=== PATIENT | female | born 1990 | race Caucasian/White ===

== ENCOUNTER → 2017-04-16 | Day surgery (SDC) | payer OTHER ==
[~2017-04-16] MED LIST: HYDROmorphone 2 MG/ML VIAL IV; IV RINGERS,LACTATED 1000ML 1,000 ML IV; LIDOCAINE 1% PF 2 ML VIAL. ID; LIDOCAINE 2% PF Vial for OR 5 ML VIAL.; MORPHINE SULFATE 2 MG/ML DISP.SYRIN. IV; ONDANSETRON PF 4 MG/2 ML VIAL. IV; PROCHLORPERAZINE 10 MG/2 ML VIAL. IV; PROPOFOL 20 ML IV; fentaNYL PF VIAL 100 MCG/2 ML VIAL IV
[2017-04-16] MEDS: IV RINGERS,LACTATED 1000ML 1,000 ML IV (16:00)
[2017-04-16 16:13] LABS: POC GLUCOSE 207 mg/dL (70-99)
[2017-04-16 16:26] LABS: NEG OBC UR NEG; POS OBC UR POS
== END | disposition home or self-care (01) ==
LOC: ENDOS 15:36
DX: K29.50 Unspecified chronic gastritis without bleeding (principal); E11.9 Type 2 diabetes mellitus without complications; Z87.39 Personal history of other diseases of the musculoskeletal system and connective tissue; Z86.39 Personal history of other endocrine, nutritional and metabolic disease; Z91.040 Latex allergy status
CPT/HCPCS: 43235; 81025; 82962; J2704

== ENCOUNTER 2017-04-24 12:32 | Day surgery (SDC) | payer OTHER ==
[~2017-04-24] VITALS: Ht 160 cm; Wt 70.3 kg
[~2017-04-24 12:32] MED LIST changes: +DEXAMETHASONE SOD PHOS 20 MG/5 ML VIAL. ONE; +DICY20TA3 PO; +HYDR-2762 PO; +HYDR-971 PO; -HYDROmorphone 2 MG/ML VIAL IV; +HYOS0.1264 PO; +HYOS125E PO; +INSU100I32 SQ; +INSU100V31 SQ; -IV RINGERS,LACTATED 1000ML 1,000 ML IV; +IV RINGERS,LACTATED 1000ML 1,000 ML IV SCH; -LIDOCAINE 1% PF 2 ML VIAL. ID; +LIDOCAINE 1% PF 2 ML VIAL. ID PRN; -LIDOCAINE 2% PF Vial for OR 5 ML VIAL.; +LIDOCAINE 2% PF Vial for OR 5 ML VIAL. ONE; +METO10TA81 PO; -MORPHINE SULFATE 2 MG/ML DISP.SYRIN. IV; +ONDA4TAB7 PO; -ONDANSETRON PF 4 MG/2 ML VIAL. IV; +ONDANSETRON PF 4 MG/2 ML VIAL. IV PRN; +ONDANSETRON PF 4 MG/2 ML VIAL. ONE; -PROCHLORPERAZINE 10 MG/2 ML VIAL. IV; +PROM25TA10 PO; -PROPOFOL 20 ML IV; +PROPOFOL 20 ML IV ONE; +ROCURONIUM 50 MG/5 ML VIAL. ONE; +ceFAZolin 2GM PREMIX 2 GM/50 ML BAG IV ONE; -fentaNYL PF VIAL 100 MCG/2 ML VIAL IV; +fentaNYL PF VIAL 100 MCG/2 ML VIAL IV PRN
[2017-04-24] MEDS ORDERED: IV RINGERS,LACTATED 1000ML 1,000 ML IV SCH (12:41)
[2017-04-24] MEDS ORDERED: MIDAZOLAM HCL/PF 2 MG/2 ML VIAL. IV PRN (12:45)
[2017-04-24] MEDS ORDERED: LIDOCAINE 1% PF 2 ML VIAL. ID PRN (12:45)
[2017-04-24] MEDS ORDERED: fentaNYL PF VIAL 100 MCG/2 ML VIAL IV PRN ×2 (12:45)
[2017-04-24 12:56] LABS: NEG OBC UR NEG; POS OBC UR POS
[2017-04-24] MEDS ORDERED: BUPIVAC MPF-EPI 0.5%-1:200000 30 ML VIAL. ONE (13:03)
[2017-04-24] MEDS ORDERED: SURGICEL HEMOSTAT 4X8 EACH. ONE (13:03)
[2017-04-24] MEDS ORDERED: IOHEXOL 300 MG/ML 50 ML VIAL. ONE (13:03)
[2017-04-24] MEDS ORDERED: fentaNYL PF VIAL 100 MCG/2 ML VIAL ONE ×2 (13:37→14:31)
[2017-04-24] MEDS ORDERED: MIDAZOLAM HCL/PF 2 MG/2 ML VIAL. ONE (13:37)
[2017-04-24] MEDS ORDERED: KETOROLAC 30 MG/ML INJ FOR OR. INJ ONE (14:32)
[2017-04-24] MEDS ORDERED: GLYCOPYRROLATE 1 MG/5 ML VIAL. ONE (14:53)
[2017-04-24] MEDS ORDERED: NEOSTIGMINE METHYLSULFATE 5 MG/5 ML SYRINGE. ONE (14:53)
--- NOTE | 2017-04-24 15:10 | PDOC4 ---
Operative Note Operative Note Date: 04/24/2017 Preoperative diagnosis: Biliary dyskinesia Postoperative diagnosis: Same Procedure: Laparoscopic cholecystectomy Surgeon: Bayron Specimen: Gallbladder Dictation: Patient is a 26-year-old female who has developed right upper quadrant abdominal pain postprandial nausea for the last several months after the delivery of her baby at the time of her HIDA scan which was injected with Kinevac she had similar symptoms since she is having after eating. Procedure lap scopic cholecystectomy was explained to the patient detail was benefits were also discussed including bleeding infection alternatives to this procedure also discussed the patient seemed understanding gave both verbal and written consent had procedure performed. Patient was taken to the operating room placed in supine position general anesthesia was initiated once patient was asleep and intubated her abdomen was prepped and draped usual sterile fashion using ChloraPrep and area just below the umbilicus was injected with quarter percent Marcaine with epinephrine incisions made lead blade scalpel varies needle was placed within the abdomen. A pneumoperitoneum was achieved once this complete an 11 mm port was placed a 5 mm camera was then placed within the abdomen and inspected no other at maladies were noted at this point a 5 OmegaPort was placed in the epigastrium under direct visualization a second 5 mm port placed lateral right abdomen as well as one in the right mid abdomen the dome of the gallbladder was grasped retracted cephalad the infundibulum gallbladder's grasped retracted laterally there is some adhesions to the gallbladder which were taken down with blunt dissection exposing the triangle. Adherent tissues the triangle are taken down exposing the cystic duct and cystic artery both were doubly clipped and transected the gallbladder was taken off the liver with hook left cautery placed within an Endo Catch bag and removed from the umbilicus. The right upper quadrant was irrigated and suctioned dry hemostasis deemed to be appropriate and the pneumoperitoneum was reduced all ports removed the fascial defect at the umbilicus was closed with a [id number] 0 Vicryl suture and skin was approximated all port sites 4 septic Monocryl. Mastisol Steri-Strips and Band-Aids were applied as dressings. She was waken next made in the operating room taken recovery in stable condition all sponge instrument needle counts listed as correct. Estimated blood loss 20 mL WADLO FOY MD Apr 24, 2017 15:10
--- NOTE | 2017-04-24 15:11 | DISCH ---
DISCHARGE INSTRUCTIONS Condition on Discharge Condition on Discharge: Stable Activity After Discharge Activity Instructions for Disc: Avoid exertion Other activity instructions: No lifting >20lbs for 2 weeks Diet after Discharge Diet after Discharge: Low Fat Wound Incision Care Other wound/incision instructi: May shower in 24 hours Contacting the after DC Call your doctor for: If your condition worsens Follow-Up Follow up with: Dr Foy in 2 weeks WALDO FOY MD Apr 24, 2017 15:11
[2017-04-24] MEDS: fentaNYL PF VIAL 100 MCG/2 ML VIAL IV PRN ×2 (15:32→15:38)
[2017-04-24] MEDS: MORPHINE SULFATE 2 MG/ML DISP.SYRIN. IV PRN ×2 (15:52→16:05)
[2017-04-24] MEDS ORDERED: oxyCODONE/APAP 5/325 1 TAB TABLET PO PRN (16:00)
[2017-04-24] MEDS: HYDROmorphone 2 MG/ML VIAL IV PRN ×4 (16:16→16:52)
[2017-04-24 17:20] VITALS: BP 107/66
--- NOTE | 2017-04-26 17:31 | PATHOLOGY ---
PATHOLOGY REPORT * * * * * * * * FINAL DIAGNOSIS: Gallbladder, laparoscopic cholecystectomy: - Chronic cholecystitis, mild. COMMENT: There are no calculi identified within the gallbladder lumen or specimen container. Sections of the gallbladder show focal very mild chronic inflammation. There is no evidence of malignancy. (JPM:mgr; 04/26/2017) REPORT ELECTRONICALLY SIGNED BY: Lester Bower M.D. DATE/TIME: 04/26/2017 17:31 * * * * * * * * GROSS PATHOLOGY: Received in formalin labeled "Miya Longo, gallbladder," is an 8.3 x 3.1 x 2.9 cm, intact gallbladder with dark green, slightly vascular serosal surfaces. Opening the gallbladder reveals dark green, velvety mucosa and an average wall thickness of 0.2 cm. Calculi are not present and no masses are noted grossly. Health Occupations Instructor sections from the body and fundus are submitted along with the proximal margin in cassette A1. (TSD; 04/25/2017) INITIAL CPT CODE(S): A; 23860 Professional services performed by [facility] [place] [address] Technical services performed by [facility] at [address] [place] [address] [address] [address]. FILIBERTO Ramirez [phone] (fax) SPECIMEN(S) RECEIVED: A.Gallbladder CLINICAL HISTORY: Biliary dyskinesia PATIENT: MIYA LONGO /AGE: 5 1990 (Age: 26) PATIENT #: [id number] ALT CASE #: SPECIMEN COLLECTION DATE: 04/24/2017 SPECIMEN RECEIVED DATE: 04/25/2017 [facility] - [address] [place] [address] - PHONE: [phone] * * * END OF REPORT * * *
== END 2017-04-24 17:31 | disposition home or self-care (01) ==
LOC: SURG 12:32
PROVIDERS: ATTEND Surgery
DX: K81.1 Chronic cholecystitis (principal); K82.8 Other specified diseases of gallbladder; Z91.040 Latex allergy status; E11.9 Type 2 diabetes mellitus without complications
CPT/HCPCS: 47562; 81025; 82962; J0690; J1100; J1170; J1885; J2250; J2270; J2405; J2704; J2710; J3010; J3490; J7030; J7120; Q9967; J2001

== ENCOUNTER 2017-04-25 15:58 | Observation (INO) | payer OTHER ==
[~2017-04-25] VITALS: Ht 160 cm; Wt 70.3 kg
[~2017-04-25 15:58] MED LIST changes: -DEXAMETHASONE SOD PHOS 20 MG/5 ML VIAL. ONE; -IV RINGERS,LACTATED 1000ML 1,000 ML IV SCH; -LIDOCAINE 1% PF 2 ML VIAL. ID PRN; -LIDOCAINE 2% PF Vial for OR 5 ML VIAL. ONE; -ONDANSETRON PF 4 MG/2 ML VIAL. IV PRN; -ONDANSETRON PF 4 MG/2 ML VIAL. ONE; -PROPOFOL 20 ML IV ONE; -ROCURONIUM 50 MG/5 ML VIAL. ONE; -ceFAZolin 2GM PREMIX 2 GM/50 ML BAG IV ONE; -fentaNYL PF VIAL 100 MCG/2 ML VIAL IV PRN
[2017-04-25] MEDS ORDERED: IV NORMAL SALINE 1000ML BAG 1,000 ML IV SCH (16:29)
[2017-04-25 16:36] LABS: BASO % 0 % (0-3); EOS % 1 % (0-3); HEMOGLOBIN 13.2 g/dL (12.0-15.5); LYMPH # 2.5 x10^3/uL (1.0-4.8); LYMPH % 25 % (24-48); MEAN CORPUSCULAR HEMOGLOBIN 31 pg (25-35); MEAN CORPUSCULAR HGB CONC 33 g/dL (31-37); MEAN CORPUSCULAR VOLUME 93 fL (79-100); MONO % 9 % (0-9); NEUT % 65 % (31-73); PLATELET COUNT 400 x10^3/uL (140-400); RED BLOOD COUNT 4.31 x10^6/uL (3.50-5.40); RED CELL DISTRIBUTION WIDTH 13.5 % (11.5-14.5); WHITE BLOOD COUNT 10.2 x10^3/uL (4.0-11.0)
--- NOTE | 2017-04-25 16:38 | PHYS DOC ---
Past Medical History Past Medical History: Diabetes-Type I, Ovarian Cyst Past Medical History s/p melvin Past Surgical History: No Surgical History, Cholecystectomy Alcohol Use: Rarely Drug Use: None Adult General Chief Complaint Chief Complaint: ABDOMINAL PAIN HPI HPI Patient is a 26 year old female presented with abdominal pain s/p cholecystectomy yesterday. Patient had a laparoscopic cholecystectomy yesterday. Today she's been taking her pain medicines but has intractable pain. She's been taking the pain medicines orally to every 4 hours as directed. No vomiting. No fevers. The pain is diffuse. Worse with movement. She did call her surgeon asked that she come in to be seen for this. Pain is severe. Review of Systems Review of Systems Constitutional: Denies fever or chills Eyes: Denies change in visual acuity, redness, or eye pain HENT: Denies nasal congestion or sore throat Respiratory: Denies cough or shortness of breath Cardiovascular: No additional information not addressed in HPI GI: Per HPI. : Denies dysuria or hematuria Musculoskeletal: Denies back pain or joint pain Integument: Denies rash or skin lesions Neurologic: Denies headache, focal weakness or sensory changes Endocrine: Denies polyuria or polydipsia All other systems were reviewed and found to be within normal limits, except as documented in this note. Current Medications Current Medications Current Medications Medications (Trade) Dose Ordered Sig/Alfonso Start Time Stop Time Status Last Admin Dose Admin Hydromorphone HCl (Dilaudid) 1 mg PRN Q15MIN PRN 04/25/17 16:30 04/25/17 21:43 DC 04/25/17 19:31 1 MG Info (Do NOT chart on this entry -- for MONITORING) 1 each PRN DAILY PRN 04/25/17 17:00 04/27/17 16:59 Iohexol (Omnipaque 300 Mg/ml) 75 ml 1X ONCE 04/25/17 17:15 04/25/17 17:16 DC Sodium Chloride 1,000 ml @ 1,000 mls/hr Q1H 04/25/17 16:29 04/25/17 17:28 DC 04/25/17 16:49 1,000 MLS/HR Allergies Allergies Allergies Coded Allergies Type Severity Reaction Last Updated Verified latex Allergy Intermediate 04/24/17 Yes Physical Exam Physical Exam Constitutional: Well developed, well nourished, mild distress, non-toxic appearance. HENT: Normocephalic, atraumatic, bilateral external ears normal, oropharynx moist, no oral exudates, nose normal. Eyes: PERRLA, EOMI, conjunctiva normal, no discharge. Neck: Normal range of motion, no tenderness, supple, no stridor. Cardiovascular:Heart rate regular rhythm, no murmur Lungs & Thorax: Bilateral breath sounds clear to auscultation Abdomen:Diffuse abdominal tenderness. Skin: Warm, dry, no erythema, no rash. Back: No tenderness, no CVA tenderness. Extremities: No tenderness, no cyanosis, no clubbing, ROM intact, no edema. Neurologic: Alert and oriented X 3, normal motor function, normal sensory function, no focal deficits noted. Psychologic: Affect normal, judgement normal, mood normal. Current Patient Data Vital Signs Vital Signs Date Time Temp Pulse Resp B/P (MAP) Pulse Ox O2 Delivery O2 Flow Rate FiO2 04/25/17 17:20 16 04/25/17 16:30 98.3 113 126/80 (95) 97 Room Air 98.3 Lab Values Laboratory Tests Test 04/25/17 16:30 White Blood Count 10.2 x10^3/uL (4.0-11.0) Red Blood Count 4.31 x10^6/uL (3.50-5.40) Hemoglobin 13.2 g/dL (12.0-15.5) Hematocrit 40.0 % (36.0-47.0) Mean Corpuscular Volume 93 fL (79-100) Mean Corpuscular Hemoglobin 31 pg (25-35) Mean Corpuscular Hemoglobin Concent 33 g/dL (31-37) Red Cell Distribution Width 13.5 % (11.5-14.5) Platelet Count 400 x10^3/uL (140-400) Neutrophils (%) (Auto) 65 % (31-73) Lymphocytes (%) (Auto) 25 % (24-48) Monocytes (%) (Auto) 9 % (0-9) Eosinophils (%) (Auto) 1 % (0-3) Basophils (%) (Auto) 0 % (0-3) Neutrophils # (Auto) 6.7 x10^3uL (1.8-7.7) Lymphocytes # (Auto) 2.5 x10^3/uL (1.0-4.8) Monocytes # (Auto) 0.9 x10^3/uL (0.0-1.1) Eosinophils # (Auto) 0.1 x10^3/uL (0.0-0.7) Basophils # (Auto) 0.0 x10^3/uL (0.0-0.2) Sodium Level 141 mmol/L (136-145) Potassium Level 4.1 mmol/L (3.5-5.1) Chloride Level 102 mmol/L (98-107) Carbon Dioxide Level 26 mmol/L (21-32) Anion Gap 13 (6-14) Blood Urea Nitrogen 13 mg/dL (7-20) Creatinine 0.5 mg/dL (0.6-1.0) L Estimated GFR (Cockcroft-Gault) 150.3 BUN/Creatinine Ratio 26 (6-20) H Glucose Level 232 mg/dL (70-99) H Calcium Level 8.5 mg/dL (8.5-10.1) Total Bilirubin 0.4 mg/dL (0.2-1.0) Aspartate Amino Transferase (AST) 40 U/L (15-37) H Alanine Aminotransferase (ALT) 41 U/L (14-59) Alkaline Phosphatase 101 U/L (46-116) Total Protein 7.9 g/dL (6.4-8.2) Albumin 3.7 g/dL (3.4-5.0) Albumin/Globulin Ratio 0.9 (1.0-1.7) L Lipase 50 U/L (73-393) L Laboratory Tests 04/25/17 16:30 Laboratory Tests 04/25/17 16:30 EKG EKG [] Radiology/Procedures Radiology/Procedures []PATIENT: JOVITA LONGO ACCOUNT: [id number] : 1990 LOCATION: ER AGE: 26 SEX: F EXAM STATUS: REG ER ORD. PHYSICIAN: CHARITO SHERMAN MD REASON: abdominal pain s/p melvin PROCEDURE: CT ABD PELV W/ IV CONTRST ONLY CT SCAN OF THE ABDOMEN AND PELVIS WITH IV CONTRAST. History: Abdominal pain status post cholecystectomy Comparison:None. Procedure: Contiguous axial images of the abdomen and pelvis were performed after the administration of 75 cc of Omni 300 IV contrast and without oral contrast. CT Abdomen with contrast: Findings: Liver: Unremarkable Spleen: Unremarkable Pancreas: Unremarkable Adrenal Glands: Unremarkable Kidneys: Unremarkable There is no mass or lymphadenopathy. Surgical clips and minimal free fluid is seen in the gallbladder fossa. There is air within the abdominal wall on the right and there is also mild free air under the diaphragm. CT Pelvis with Contrast: Findings: The urinary bladder appears normal. There is no free fluid. There is no lymphadenopathy. The appendix is not well seen but appears normal. There is a 19 mm dominant follicle in left ovary. The right ovary is not well seen and likely small. The uterus appears within normal limits. Impression: Postsurgical changes. Minimal fluid in the gallbladder fossa and mild free air is presumably postsurgical. Clinical correlation is suggested. PQRS Compliance Statement: One or more of the following individualized dose reduction techniques were utilized for this examination: 1. Automated exposure control 2. Adjustment of the mA and/or kV according to patient size 3. Use of iterative reconstruction technique Electronically signed by: Jairo Olvera III, MD (04/25/2017 5:37 PM) [facility] DICTATED and SIGNED BY: JAIRO OLVERA III, MD DATE: 04/25/17 1724 CC: BARBARA CUTLER; CHARITO SHERMAN MD ~ Course & Med Decision Making Course & Med Decision Making Pertinent Labs and Imaging studies reviewed. (See chart for details) Post op pain. Will check labs, CT abdomen/pelvis and control pain. 1814: essentially normal post-op testing today. Patient still with pain. I will let Dr. Verma know and contact hospitalist Dr. Choudhury for admission. 624: Dr. Choudhury is happy to admit; Dr. Verma is notified and agrees with the plan. DX: intractable post-op abdominal pain. Dragon Disclaimer Dragon Disclaimer This electronic medical record was generated, in whole or in part, using a voice recognition dictation system. Departure Departure Referrals: BARBARA CUTLER (PCP) CHARITO SHERMAN MD Apr 25, 2017 16:38
[2017-04-25] MEDS: HYDROmorphone 2 MG/ML VIAL IV/SQ PRN ×4 (16:47→19:31)
[2017-04-25 16:52] LABS: CALCIUM 8.5 mg/dL (8.5-10.1); CREATININE 0.5 mg/dL (0.6-1.0); GFR 150.3; POTASSIUM 4.1 mmol/L (3.5-5.1)
[2017-04-25 16:57] LABS: ALBUMIN 3.7 g/dL (3.4-5.0); ALBUMIN/GLOBULIN RATIO 0.9 (1.0-1.7); TOTAL BILIRUBIN 0.4 mg/dL (0.2-1.0); TOTAL PROTEIN 7.9 g/dL (6.4-8.2)
[2017-04-25] MEDS ORDERED: CONTRAST GIVEN MC PRN (17:00)
[2017-04-25] MEDS ORDERED: IOHEXOL 300 MG/ML 100ML VIAL. IV ONE (17:15)
--- NOTE | 2017-04-25 17:40 | RAD ---
CT SCAN OF THE ABDOMEN AND PELVIS WITH IV CONTRAST. History: Abdominal pain status post cholecystectomy Comparison:None. Procedure: Contiguous axial images of the abdomen and pelvis were performed after the administration of 75 cc of Omni 300 IV contrast and without oral contrast. CT Abdomen with contrast: Findings: Liver: Unremarkable Spleen: Unremarkable Pancreas: Unremarkable Adrenal Glands: Unremarkable Kidneys: Unremarkable There is no mass or lymphadenopathy. Surgical clips and minimal free fluid is seen in the gallbladder fossa. There is air within the abdominal wall on the right and there is also mild free air under the diaphragm. CT Pelvis with Contrast: Findings: The urinary bladder appears normal. There is no free fluid. There is no lymphadenopathy. The appendix is not well seen but appears normal. There is a 19 mm dominant follicle in left ovary. The right ovary is not well seen and likely small. The uterus appears within normal limits. Impression: Postsurgical changes. Minimal fluid in the gallbladder fossa and mild free air is presumably postsurgical. Clinical correlation is suggested. PQRS Compliance Statement: One or more of the following individualized dose reduction techniques were utilized for this examination: 1. Automated exposure control 2. Adjustment of the mA and/or kV according to patient size 3. Use of iterative reconstruction technique Electronically signed by: Kannan Cooley III, MD (04/25/2017 5:37 PM) [facility]
[2017-04-25] MEDS ORDERED: ONDANSETRON PF 4 MG/2 ML VIAL. IV PRN (18:30)
[2017-04-25 20:40] VITALS: BP 100/59
[2017-04-25] MEDS: MORPHINE SULFATE 2 MG/ML DISP.SYRIN. IV PRN ×2 (21:02→23:27)
[2017-04-25] MEDS ORDERED: CEFEPIME HCL 1 GM in IV DEXTROSE 5% 50 ML IV SCH (22:00)
--- NOTE | 2017-04-25 22:19 | HP ---
ADMIT DATE: 04/25/2017 CHIEF COMPLAINT: Severe abdominal pain. HISTORY OF PRESENT ILLNESS: The patient is a 26-year-old diabetic who had undergone elective outpatient cholecystectomy due to biliary dyskinesia yesterday, 04/24/2017. She had been discharged, although still had pain. She relates that pain currently is right under her ribs, in the nipple line, severe, worse with deep breathing. This is actually different than the pain that she had prior to cholecystectomy, which was worse with eating and more in her epigastrium. She has been unable to eat and drink and pain is not controlled with the oxycodone she received postop. She denies any fevers or chills. Denies any other symptoms including nausea, vomiting or diarrhea. In the Emergency Room, a CT of the abdomen was obtained, revealing unremarkable upper abdomen. No mass or lymphadenopathy. Surgical clips and minimal free fluid seen in the gallbladder fossa as well as some air within the abdominal wall on the right and some free air under the diaphragm, not unusual after surgery. PAST MEDICAL HISTORY: Chronic right upper quadrant pain x 4 years; biliary dyskinesia, status post cholecystectomy; diabetes mellitus and ovarian cyst. FAMILY HISTORY: Other family members with cholecystitis and requiring resection, including her father and paternal grandfather. SOCIAL HISTORY: Denies any toxic habits. ALLERGIES: LATEX. MEDICATIONS: MAR reconciled with home medications. REVIEW OF SYSTEMS: Positive for right upper quadrant pain and details as per the HPI. Rest of the organ system review is answered negatively. PHYSICAL EXAMINATION: VITAL SIGNS: From today show a blood pressure of 100/59, heart rate of 107 and respiratory rate at 19. She is afebrile. GENERAL: This is a 26-year-old woman, alert and oriented, in moderate distress. HEENT: Shows no scleral icterus. NECK: Supple. LUNGS: Clear. HEART: Regular rate and rhythm. ABDOMEN: Has tenderness to palpation in the right upper quadrant, a lot of anticipation. No pain to palpation in the left lower quadrant, but left upper and right lower also tender. EXTREMITIES: Show no edema. SKIN: Warm, soft and dry, without any rash. LABORATORY DATA: CBC with a WBC of 10.2, hemoglobin 13.2 and platelets of 400,000. Chemistries with a BUN and creatinine of 13 and 0.5. Normal electrolytes. Glucose at 232. LFTs with minimal elevation of 40 and 41 for AST and ALT respectively. Albumin at 3.7. Lipase at 50. RADIOGRAPHIC STUDIES: CT of the abdomen and pelvis without any significant abnormalities. ASSESSMENT AND PLAN: The patient is a 26-year-old diabetic with a long-standing history of biliary dyskinesia, now status post cholecystectomy and resultant right upper quadrant pain that she claims is different from previous. We will get her admitted. A white blood cell count being slightly elevated is not unusual post-surgery. We will cover her empirically with antibiotics. Surgical consult will be obtained. I will keep her on clear liquids for the time being, IV fluids are going. She will receive morphine for pain control. For insulin, Levemir will be substituted at slightly lower dose given her decreased p.o. intake. We will add insulin sliding scale. ASUNCION HELMS MD DR: UR/nts JOB#: [id number] / [id number] ROSAS
[2017-04-25] MEDS: POTASSIUM CL 20MEQ-0.45% NACL 1,000 ML IV SCH (22:20)
[2017-04-25] MEDS: LINEZOLID 600 MG TABLET PO SCH (22:22)
[2017-04-25] MEDS: CEFEPIME HCL IV Push 1 GM VIAL. IVP SCH (22:22)
[2017-04-25] MEDS: INSULIN DETEMIR 300 UNITS/3 ML INSULN.PEN. SQ SCH (22:34)
[2017-04-25 23:24] VITALS: BP 97/57
[2017-04-26] MEDS: MORPHINE SULFATE 2 MG/ML DISP.SYRIN. IV PRN ×5 (01:33→12:08)
[2017-04-26 03:02] VITALS: BP 102/62
[2017-04-26 05:31] LABS: BASO # 0.1 x10^3/uL (0.0-0.2); BASO % 1 % (0-3); EOS % 4 % (0-3); HEMATOCRIT 33.8 % (36.0-47.0); HEMOGLOBIN 11.1 g/dL (12.0-15.5); LYMPH # 2.8 x10^3/uL (1.0-4.8); LYMPH % 35 % (24-48); MEAN CORPUSCULAR HEMOGLOBIN 31 pg (25-35); MEAN CORPUSCULAR HGB CONC 33 g/dL (31-37); MEAN CORPUSCULAR VOLUME 94 fL (79-100); MONO % 9 % (0-9); NEUT % 52 % (31-73); PLATELET COUNT 288 x10^3/uL (140-400); RED BLOOD COUNT 3.61 x10^6/uL (3.50-5.40); RED CELL DISTRIBUTION WIDTH 14.2 % (11.5-14.5); WHITE BLOOD COUNT 7.9 x10^3/uL (4.0-11.0)
[2017-04-26 06:10] LABS: CALCIUM 7.6 mg/dL (8.5-10.1); CREATININE 0.4 mg/dL (0.6-1.0); GFR 194.5; POTASSIUM 3.5 mmol/L (3.5-5.1)
[2017-04-26] MEDS: CEFEPIME HCL IV Push 1 GM VIAL. IVP SCH ×2 (06:25→14:00)
[2017-04-26 07:00] VITALS: BP 93/62
[2017-04-26] MEDS: INSULIN ASPART 300 UNITS/3 ML INSULN.PEN SQ SCH ×3 (08:00→17:00)
[2017-04-26] MEDS: DEXTROSE 50% 25 GM / 50ML DISP.SYRIN. IV PRN (08:02)
[2017-04-26] MEDS: LACTOBACILLUS RHAMNOSUS GG 1 CAPSULE. PO SCH ×2 (08:02→22:29)
[2017-04-26] MEDS: LINEZOLID 600 MG TABLET PO SCH ×2 (08:02→22:29)
[2017-04-26] MEDS: POTASSIUM CL 20MEQ-0.45% NACL 1,000 ML IV SCH (08:12)
--- NOTE | 2017-04-26 08:59 | PDOC2 ---
CONSULT Date of Consult Date of Consult DATE: 04/26/17 TIME: 08:54 Reason for Consult Reason for Consult: Post op pain Identification/Chief Complaint Chief Complaint Abdominal pain Problems: Source Source: Patient History of Present Illness Reason for Visit: 26 yo female had L/S Tasha on 04/24 and yesterday had severe pain uncontrolled by pain meds. Currently, in bed still complaining of abdominal pain, no nausea. Past Medical History Cardiovascular: No pertinent hx GI: Other (biliary dyskensia) Heme/Onc: No pertinent hx Hepatobiliary: No pertinent hx Psych: No pertinent hx Rheumatologic: No pertinent hx Infectious disease: No pertinent hx ENT: No pertinent hx Renal/: No pertinent hx Endocrine: No pertinent hx Dermatology: No pertinent hx Past Surgical History Past Surgical History: Cholecystectomy Family History Family History: No Significant Social History No ALCOHOL: none Drugs: None Lives: with Family Current Problem List Problem List Problems Medical Problems: (1) Post-op pain Status: Acute Current Medications Current Medications Current Medications Hydromorphone HCl (Dilaudid) 1 mg PRN Q15MIN PRN IV/SQ PAIN GREATER THAN 3/10 Last administered on 04/25/17 19:31; Start 04/25/17 at 16:30; Stop 04/25/17 at 21:43; Status DC Sodium Chloride 1,000 ml @ 1,000 mls/hr Q1H IV Last administered on 16:49; Start 04/25/17 at 16:29; Stop 04/25/17 at 17:28; Status DC Iohexol (Omnipaque 300 Mg/ml) 75 ml 1X ONCE IV ; Start 04/25/17 at 17:15; Stop 04/25/17 at 17:16; Status DC Info (Do NOT chart on this entry -- for MONITORING) 1 each PRN DAILY PRN MC SEE COMMENTS; Start 04/25/17 at 17:00; Stop 04/27/17 at 16:59 Ondansetron HCl (Zofran) 4 mg PRN Q8HRS PRN IV NAUSEA/VOMITING Last administered on 04/25/17 21:03; Start 04/25/17 at 18:30; Stop 04/26/17 at 18 :29 Morphine Sulfate 2 mg PRN Q2HR PRN IV PAIN Last administered on 04/26/17 06: 26; Start 04/25/17 at 18:30; Stop 04/26/17 at 18:29 Cefepime HCl 1 gm/ Dextrose 50 ml @ 100 mls/hr Q8HRS IV ; Start 04/25/17 at 22 :00; Status UNV Linezolid (Zyvox) 600 mg BID PO Last administered on 04/26/17 08:02; Start 04/25/17 at 22:00 Lactobacillus Rhamnosus (Culturelle) 1 cap BID PO Last administered on 08:02; Start 04/26/17 at 09:00 Potassium Chloride/Sodium Chloride 1,000 ml @ 75 mls/hr [id number] IV Last administered on 04/26/17 08:12; Start 04/25/17 at 21:45 Cefepime HCl (Maxipime) 1 gm Q8HRS IVP Last administered on 04/26/17 06:25; Start 04/25/17 at 22:00 Insulin Detemir (Levemir) 30 units QHS SQ Last administered on 04/25/17 22:34 ; Start 04/25/17 at 21:45 Insulin Aspart (NovoLOG) 0-9 UNITS TIDWMEALS SQ ; Start 04/26/17 at 08:00 Dextrose (Dextrose 50%-Water Syringe) 12.5 gm PRN Q15MIN PRN IV SEE COMMENTS Last administered on 04/26/17 08:02; Start 04/25/17 at 21:45 Active Scripts Active Reported [place] 5-325 Tablet (Acetaminophen/Hydrocodone Bitart) 1 Each Tablet 1 Tab PO PRN Q6HRS PRN Levsin (Hyoscyamine Sulfate) 0.125 Mg Tablet 1 Tab PO PRN Q6HRS Dicyclomine Hcl 20 Mg Tablet 20 Mg PO PRN Q6HRS Promethazine Hcl 25 Mg Tablet 25 Mg PO Q6H PRN Reglan (Metoclopramide Hcl) 10 Mg Tablet 10 Mg PO TID Novolog (Insulin Aspart) 100 Unit/1 Ml Vial 5 Unit SQ TIDBFRMEAL Basaglar Kwikpen U-100 (Insulin Glargine,Hum.rec.anlog) 100 Unit/1 Ml Insuln.pen 40 Unit SQ QHS Hydrocodone-Apap 7.5-325 (Hydrocodone Bit/Acetaminophen) 1 Each Tablet 1 Tab PO Q4HRS Zofran (Ondansetron Hcl) 4 Mg Tablet 4 Mg PO BID PRN Allergies Allergies: Coded Allergies: latex (Verified Allergy, Intermediate, 04/24/17) ROS Gastrointestinal: Yes Abdominal Pain Physical Exam General: Alert, Oriented X3, Cooperative, mild distress HEENT: Atraumatic Lungs: Clear to auscultation, Normal air movement Heart: Regular rate, No murmurs Abdomen: Normal bowel sounds, Soft, Other (diffusely ttp) Extremities: No edema Skin: No significant lesion Neuro: Normal speech Psych/Mental Status: Mental status NL Vitals VITALS Vital Signs Date Time Temp Pulse Resp B/P (MAP) Pulse Ox O2 Delivery O2 Flow Rate FiO2 04/26/17 08:12 Room Air 04/26/17 07:00 98.3 90 16 93/62 (72) 95 98.3 04/26/17 07:00 2.0 Labs Labs Laboratory Tests Test 04/25/17 16:30 04/25/17 21:54 04/26/17 05:15 04/26/17 07:34 White Blood Count 10.2 x10^3/uL (4.0-11.0) 7.9 x10^3/uL (4.0-11.0) Red Blood Count 4.31 x10^6/uL (3.50-5.40) 3.61 x10^6/uL (3.50-5.40) Hemoglobin 13.2 g/dL (12.0-15.5) 11.1 g/dL (12.0-15.5) Hematocrit 40.0 % (36.0-47.0) 33.8 % (36.0-47.0) Mean Corpuscular Volume 93 fL (79-100) 94 fL (79-100) Mean Corpuscular Hemoglobin 31 pg (25-35) 31 pg (25-35) Mean Corpuscular Hemoglobin Concent 33 g/dL (31-37) 33 g/dL (31-37) Red Cell Distribution Width 13.5 % (11.5-14.5) 14.2 % (11.5-14.5) Platelet Count 400 x10^3/uL (140-400) 288 x10^3/uL (140-400) Neutrophils (%) (Auto) 65 % (31-73) 52 % (31-73) Lymphocytes (%) (Auto) 25 % (24-48) 35 % (24-48) Monocytes (%) (Auto) 9 % (0-9) 9 % (0-9) Eosinophils (%) (Auto) 1 % (0-3) 4 % (0-3) Basophils (%) (Auto) 0 % (0-3) 1 % (0-3) Neutrophils # (Auto) 6.7 x10^3uL (1.8-7.7) 4.1 x10^3uL (1.8-7.7) Lymphocytes # (Auto) 2.5 x10^3/uL (1.0-4.8) 2.8 x10^3/uL (1.0-4.8) Monocytes # (Auto) 0.9 x10^3/uL (0.0-1.1) 0.7 x10^3/uL (0.0-1.1) Eosinophils # (Auto) 0.1 x10^3/uL (0.0-0.7) 0.3 x10^3/uL (0.0-0.7) Basophils # (Auto) 0.0 x10^3/uL (0.0-0.2) 0.1 x10^3/uL (0.0-0.2) Sodium Level 141 mmol/L (136-145) 140 mmol/L (136-145) Potassium Level 4.1 mmol/L (3.5-5.1) 3.5 mmol/L (3.5-5.1) Chloride Level 102 mmol/L (98-107) 105 mmol/L (98-107) Carbon Dioxide Level 26 mmol/L (21-32) 28 mmol/L (21-32) Anion Gap 13 (6-14) 7 (6-14) Blood Urea Nitrogen 13 mg/dL (7-20) 10 mg/dL (7-20) Creatinine 0.5 mg/dL (0.6-1.0) 0.4 mg/dL (0.6-1.0) Estimated GFR (Cockcroft-Gault) 150.3 194.5 BUN/Creatinine Ratio 26 (6-20) Glucose Level 232 mg/dL (70-99) 101 mg/dL (70-99) Calcium Level 8.5 mg/dL (8.5-10.1) 7.6 mg/dL (8.5-10.1) Total Bilirubin 0.4 mg/dL (0.2-1.0) Aspartate Amino Transf (AST/SGOT) 40 U/L (15-37) Alanine Aminotransferase (ALT/SGPT) 41 U/L (14-59) Alkaline Phosphatase 101 U/L (46-116) Total Protein 7.9 g/dL (6.4-8.2) Albumin 3.7 g/dL (3.4-5.0) Albumin/Globulin Ratio 0.9 (1.0-1.7) Lipase 50 U/L (73-393) Glucose (Fingerstick) 204 mg/dL (70-99) 65 mg/dL (70-99) Test 04/26/17 08:13 Glucose (Fingerstick) 146 mg/dL (70-99) Laboratory Tests Test 04/25/17 16:30 04/25/17 21:54 04/26/17 05:15 04/26/17 07:34 White Blood Count 10.2 x10^3/uL (4.0-11.0) 7.9 x10^3/uL (4.0-11.0) Red Blood Count 4.31 x10^6/uL (3.50-5.40) 3.61 x10^6/uL (3.50-5.40) Hemoglobin 13.2 g/dL (12.0-15.5) 11.1 g/dL (12.0-15.5) Hematocrit 40.0 % (36.0-47.0) 33.8 % (36.0-47.0) Mean Corpuscular Volume 93 fL (79-100) 94 fL (79-100) Mean Corpuscular Hemoglobin 31 pg (25-35) 31 pg (25-35) Mean Corpuscular Hemoglobin Concent 33 g/dL (31-37) 33 g/dL (31-37) Red Cell Distribution Width 13.5 % (11.5-14.5) 14.2 % (11.5-14.5) Platelet Count 400 x10^3/uL (140-400) 288 x10^3/uL (140-400) Neutrophils (%) (Auto) 65 % (31-73) 52 % (31-73) Lymphocytes (%) (Auto) 25 % (24-48) 35 % (24-48) Monocytes (%) (Auto) 9 % (0-9) 9 % (0-9) Eosinophils (%) (Auto) 1 % (0-3) 4 % (0-3) Basophils (%) (Auto) 0 % (0-3) 1 % (0-3) Neutrophils # (Auto) 6.7 x10^3uL (1.8-7.7) 4.1 x10^3uL (1.8-7.7) Lymphocytes # (Auto) 2.5 x10^3/uL (1.0-4.8) 2.8 x10^3/uL (1.0-4.8) Monocytes # (Auto) 0.9 x10^3/uL (0.0-1.1) 0.7 x10^3/uL (0.0-1.1) Eosinophils # (Auto) 0.1 x10^3/uL (0.0-0.7) 0.3 x10^3/uL (0.0-0.7) Basophils # (Auto) 0.0 x10^3/uL (0.0-0.2) 0.1 x10^3/uL (0.0-0.2) Sodium Level 141 mmol/L (136-145) 140 mmol/L (136-145) Potassium Level 4.1 mmol/L (3.5-5.1) 3.5 mmol/L (3.5-5.1) Chloride Level 102 mmol/L (98-107) 105 mmol/L (98-107) Carbon Dioxide Level 26 mmol/L (21-32) 28 mmol/L (21-32) Anion Gap 13 (6-14) 7 (6-14) Blood Urea Nitrogen 13 mg/dL (7-20) 10 mg/dL (7-20) Creatinine 0.5 mg/dL (0.6-1.0) 0.4 mg/dL (0.6-1.0) Estimated GFR (Cockcroft-Gault) 150.3 194.5 BUN/Creatinine Ratio 26 (6-20) Glucose Level 232 mg/dL (70-99) 101 mg/dL (70-99) Calcium Level 8.5 mg/dL (8.5-10.1) 7.6 mg/dL (8.5-10.1) Total Bilirubin 0.4 mg/dL (0.2-1.0) Aspartate Amino Transf (AST/SGOT) 40 U/L (15-37) Alanine Aminotransferase (ALT/SGPT) 41 U/L (14-59) Alkaline Phosphatase 101 U/L (46-116) Total Protein 7.9 g/dL (6.4-8.2) Albumin 3.7 g/dL (3.4-5.0) Albumin/Globulin Ratio 0.9 (1.0-1.7) Lipase 50 U/L (73-393) Glucose (Fingerstick) 204 mg/dL (70-99) 65 mg/dL (70-99) Test 04/26/17 08:13 Glucose (Fingerstick) 146 mg/dL (70-99) Images Images CT Scan: Postsurgical changes. Minimal fluid in the gallbladder fossa and mild free air is presumably postsurgical. Clinical correlation is suggested. Assessment/Plan Assessment/Plan Post op pain Better controlled, OK to D/C when ok with WALDO CHOI MD Apr 26, 2017 08:59
[2017-04-26 11:00] VITALS: BP 98/67
--- NOTE | 2017-04-26 14:21 | PDOC ---
PROGRESS NOTES Chief Complaint Chief Complaint Dm1 acute abdominal pain post surgial pain, post cholecystectomy and right upper quadrant pain th Admit covered her empirically with antibiotics, will taper History of Present Illness History of Present Illness add toradol for pain increase dose of percocet from home, to 7.5, try to cont PO meds, Advance diet to full Vitals Vitals Vital Signs Date Time Temp Pulse Resp B/P (MAP) Pulse Ox O2 Delivery O2 Flow Rate FiO2 04/26/17 12:45 Room Air 04/26/17 11:00 97.6 92 16 98/67 (77) 95 97.6 04/26/17 07:00 2.0 Physical Exam General: Alert, Oriented X3, Cooperative, mild distress Heart: Regular rate, No murmurs Abdomen: Normal bowel sounds, Soft, Other (diffusely ttp) Extremities: No edema Skin: No significant lesion Labs LABS Laboratory Tests Test 04/25/17 16:30 04/25/17 21:54 04/26/17 05:15 04/26/17 07:34 White Blood Count 10.2 x10^3/uL (4.0-11.0) 7.9 x10^3/uL (4.0-11.0) Red Blood Count 4.31 x10^6/uL (3.50-5.40) 3.61 x10^6/uL (3.50-5.40) Hemoglobin 13.2 g/dL (12.0-15.5) 11.1 g/dL (12.0-15.5) Hematocrit 40.0 % (36.0-47.0) 33.8 % (36.0-47.0) Mean Corpuscular Volume 93 fL (79-100) 94 fL (79-100) Mean Corpuscular Hemoglobin 31 pg (25-35) 31 pg (25-35) Mean Corpuscular Hemoglobin Concent 33 g/dL (31-37) 33 g/dL (31-37) Red Cell Distribution Width 13.5 % (11.5-14.5) 14.2 % (11.5-14.5) Platelet Count 400 x10^3/uL (140-400) 288 x10^3/uL (140-400) Neutrophils (%) (Auto) 65 % (31-73) 52 % (31-73) Lymphocytes (%) (Auto) 25 % (24-48) 35 % (24-48) Monocytes (%) (Auto) 9 % (0-9) 9 % (0-9) Eosinophils (%) (Auto) 1 % (0-3) 4 % (0-3) Basophils (%) (Auto) 0 % (0-3) 1 % (0-3) Neutrophils # (Auto) 6.7 x10^3uL (1.8-7.7) 4.1 x10^3uL (1.8-7.7) Lymphocytes # (Auto) 2.5 x10^3/uL (1.0-4.8) 2.8 x10^3/uL (1.0-4.8) Monocytes # (Auto) 0.9 x10^3/uL (0.0-1.1) 0.7 x10^3/uL (0.0-1.1) Eosinophils # (Auto) 0.1 x10^3/uL (0.0-0.7) 0.3 x10^3/uL (0.0-0.7) Basophils # (Auto) 0.0 x10^3/uL (0.0-0.2) 0.1 x10^3/uL (0.0-0.2) Sodium Level 141 mmol/L (136-145) 140 mmol/L (136-145) Potassium Level 4.1 mmol/L (3.5-5.1) 3.5 mmol/L (3.5-5.1) Chloride Level 102 mmol/L (98-107) 105 mmol/L (98-107) Carbon Dioxide Level 26 mmol/L (21-32) 28 mmol/L (21-32) Anion Gap 13 (6-14) 7 (6-14) Blood Urea Nitrogen 13 mg/dL (7-20) 10 mg/dL (7-20) Creatinine 0.5 mg/dL (0.6-1.0) 0.4 mg/dL (0.6-1.0) Estimated GFR (Cockcroft-Gault) 150.3 194.5 BUN/Creatinine Ratio 26 (6-20) Glucose Level 232 mg/dL (70-99) 101 mg/dL (70-99) Calcium Level 8.5 mg/dL (8.5-10.1) 7.6 mg/dL (8.5-10.1) Total Bilirubin 0.4 mg/dL (0.2-1.0) Aspartate Amino Transf (AST/SGOT) 40 U/L (15-37) Alanine Aminotransferase (ALT/SGPT) 41 U/L (14-59) Alkaline Phosphatase 101 U/L (46-116) Total Protein 7.9 g/dL (6.4-8.2) Albumin 3.7 g/dL (3.4-5.0) Albumin/Globulin Ratio 0.9 (1.0-1.7) Lipase 50 U/L (73-393) Glucose (Fingerstick) 204 mg/dL (70-99) 65 mg/dL (70-99) Test 04/26/17 08:13 04/26/17 11:41 Glucose (Fingerstick) 146 mg/dL (70-99) 90 mg/dL (70-99) Review of Systems Review of Systems pain, insomnia weakness Assessment and Plan Assessmemt and Plan Problems Medical Problems: (1) Post-op pain Status: Acute Problems: Comment Review of Relevant I have reviewed the following items julieta (where applicable) has been applied. Labs Laboratory Tests Test 04/25/17 16:30 04/25/17 21:54 04/26/17 05:15 04/26/17 07:34 White Blood Count 10.2 x10^3/uL (4.0-11.0) 7.9 x10^3/uL (4.0-11.0) Red Blood Count 4.31 x10^6/uL (3.50-5.40) 3.61 x10^6/uL (3.50-5.40) Hemoglobin 13.2 g/dL (12.0-15.5) 11.1 g/dL (12.0-15.5) Hematocrit 40.0 % (36.0-47.0) 33.8 % (36.0-47.0) Mean Corpuscular Volume 93 fL (79-100) 94 fL (79-100) Mean Corpuscular Hemoglobin 31 pg (25-35) 31 pg (25-35) Mean Corpuscular Hemoglobin Concent 33 g/dL (31-37) 33 g/dL (31-37) Red Cell Distribution Width 13.5 % (11.5-14.5) 14.2 % (11.5-14.5) Platelet Count 400 x10^3/uL (140-400) 288 x10^3/uL (140-400) Neutrophils (%) (Auto) 65 % (31-73) 52 % (31-73) Lymphocytes (%) (Auto) 25 % (24-48) 35 % (24-48) Monocytes (%) (Auto) 9 % (0-9) 9 % (0-9) Eosinophils (%) (Auto) 1 % (0-3) 4 % (0-3) Basophils (%) (Auto) 0 % (0-3) 1 % (0-3) Neutrophils # (Auto) 6.7 x10^3uL (1.8-7.7) 4.1 x10^3uL (1.8-7.7) Lymphocytes # (Auto) 2.5 x10^3/uL (1.0-4.8) 2.8 x10^3/uL (1.0-4.8) Monocytes # (Auto) 0.9 x10^3/uL (0.0-1.1) 0.7 x10^3/uL (0.0-1.1) Eosinophils # (Auto) 0.1 x10^3/uL (0.0-0.7) 0.3 x10^3/uL (0.0-0.7) Basophils # (Auto) 0.0 x10^3/uL (0.0-0.2) 0.1 x10^3/uL (0.0-0.2) Sodium Level 141 mmol/L (136-145) 140 mmol/L (136-145) Potassium Level 4.1 mmol/L (3.5-5.1) 3.5 mmol/L (3.5-5.1) Chloride Level 102 mmol/L (98-107) 105 mmol/L (98-107) Carbon Dioxide Level 26 mmol/L (21-32) 28 mmol/L (21-32) Anion Gap 13 (6-14) 7 (6-14) Blood Urea Nitrogen 13 mg/dL (7-20) 10 mg/dL (7-20) Creatinine 0.5 mg/dL (0.6-1.0) 0.4 mg/dL (0.6-1.0) Estimated GFR (Cockcroft-Gault) 150.3 194.5 BUN/Creatinine Ratio 26 (6-20) Glucose Level 232 mg/dL (70-99) 101 mg/dL (70-99) Calcium Level 8.5 mg/dL (8.5-10.1) 7.6 mg/dL (8.5-10.1) Total Bilirubin 0.4 mg/dL (0.2-1.0) Aspartate Amino Transf (AST/SGOT) 40 U/L (15-37) Alanine Aminotransferase (ALT/SGPT) 41 U/L (14-59) Alkaline Phosphatase 101 U/L (46-116) Total Protein 7.9 g/dL (6.4-8.2) Albumin 3.7 g/dL (3.4-5.0) Albumin/Globulin Ratio 0.9 (1.0-1.7) Lipase 50 U/L (73-393) Glucose (Fingerstick) 204 mg/dL (70-99) 65 mg/dL (70-99) Test 04/26/17 08:13 04/26/17 11:41 Glucose (Fingerstick) 146 mg/dL (70-99) 90 mg/dL (70-99) Laboratory Tests Test 04/25/17 16:30 04/25/17 21:54 04/26/17 05:15 04/26/17 07:34 White Blood Count 10.2 x10^3/uL (4.0-11.0) 7.9 x10^3/uL (4.0-11.0) Red Blood Count 4.31 x10^6/uL (3.50-5.40) 3.61 x10^6/uL (3.50-5.40) Hemoglobin 13.2 g/dL (12.0-15.5) 11.1 g/dL (12.0-15.5) Hematocrit 40.0 % (36.0-47.0) 33.8 % (36.0-47.0) Mean Corpuscular Volume 93 fL (79-100) 94 fL (79-100) Mean Corpuscular Hemoglobin 31 pg (25-35) 31 pg (25-35) Mean Corpuscular Hemoglobin Concent 33 g/dL (31-37) 33 g/dL (31-37) Red Cell Distribution Width 13.5 % (11.5-14.5) 14.2 % (11.5-14.5) Platelet Count 400 x10^3/uL (140-400) 288 x10^3/uL (140-400) Neutrophils (%) (Auto) 65 % (31-73) 52 % (31-73) Lymphocytes (%) (Auto) 25 % (24-48) 35 % (24-48) Monocytes (%) (Auto) 9 % (0-9) 9 % (0-9) Eosinophils (%) (Auto) 1 % (0-3) 4 % (0-3) Basophils (%) (Auto) 0 % (0-3) 1 % (0-3) Neutrophils # (Auto) 6.7 x10^3uL (1.8-7.7) 4.1 x10^3uL (1.8-7.7) Lymphocytes # (Auto) 2.5 x10^3/uL (1.0-4.8) 2.8 x10^3/uL (1.0-4.8) Monocytes # (Auto) 0.9 x10^3/uL (0.0-1.1) 0.7 x10^3/uL (0.0-1.1) Eosinophils # (Auto) 0.1 x10^3/uL (0.0-0.7) 0.3 x10^3/uL (0.0-0.7) Basophils # (Auto) 0.0 x10^3/uL (0.0-0.2) 0.1 x10^3/uL (0.0-0.2) Sodium Level 141 mmol/L (136-145) 140 mmol/L (136-145) Potassium Level 4.1 mmol/L (3.5-5.1) 3.5 mmol/L (3.5-5.1) Chloride Level 102 mmol/L (98-107) 105 mmol/L (98-107) Carbon Dioxide Level 26 mmol/L (21-32) 28 mmol/L (21-32) Anion Gap 13 (6-14) 7 (6-14) Blood Urea Nitrogen 13 mg/dL (7-20) 10 mg/dL (7-20) Creatinine 0.5 mg/dL (0.6-1.0) 0.4 mg/dL (0.6-1.0) Estimated GFR (Cockcroft-Gault) 150.3 194.5 BUN/Creatinine Ratio 26 (6-20) Glucose Level 232 mg/dL (70-99) 101 mg/dL (70-99) Calcium Level 8.5 mg/dL (8.5-10.1) 7.6 mg/dL (8.5-10.1) Total Bilirubin 0.4 mg/dL (0.2-1.0) Aspartate Amino Transf (AST/SGOT) 40 U/L (15-37) Alanine Aminotransferase (ALT/SGPT) 41 U/L (14-59) Alkaline Phosphatase 101 U/L (46-116) Total Protein 7.9 g/dL (6.4-8.2) Albumin 3.7 g/dL (3.4-5.0) Albumin/Globulin Ratio 0.9 (1.0-1.7) Lipase 50 U/L (73-393) Glucose (Fingerstick) 204 mg/dL (70-99) 65 mg/dL (70-99) Test 04/26/17 08:13 04/26/17 11:41 Glucose (Fingerstick) 146 mg/dL (70-99) 90 mg/dL (70-99) Medications Current Medications Hydromorphone HCl (Dilaudid) 1 mg PRN Q15MIN PRN IV/SQ PAIN GREATER THAN 3/10 Last administered on 04/25/17 19:31; Start 04/25/17 at 16:30; Stop 04/25/17 at 21:43; Status DC Sodium Chloride 1,000 ml @ 1,000 mls/hr Q1H IV Last administered on 16:49; Start 04/25/17 at 16:29; Stop 04/25/17 at 17:28; Status DC Iohexol (Omnipaque 300 Mg/ml) 75 ml 1X ONCE IV ; Start 04/25/17 at 17:15; Stop 04/25/17 at 17:16; Status DC Info (Do NOT chart on this entry -- for MONITORING) 1 each PRN DAILY PRN MC SEE COMMENTS; Start 04/25/17 at 17:00; Stop 04/27/17 at 16:59 Ondansetron HCl (Zofran) 4 mg PRN Q8HRS PRN IV NAUSEA/VOMITING Last administered on 04/25/17 21:03; Start 04/25/17 at 18:30; Stop 04/26/17 at 18 :29 Morphine Sulfate 2 mg PRN Q2HR PRN IV PAIN Last administered on 04/26/17 12: 08; Start 04/25/17 at 18:30; Stop 04/26/17 at 18:29 Cefepime HCl 1 gm/ Dextrose 50 ml @ 100 mls/hr Q8HRS IV ; Start 04/25/17 at 22 :00; Status UNV Linezolid (Zyvox) 600 mg BID PO Last administered on 04/26/17 08:02; Start 04/25/17 at 22:00 Lactobacillus Rhamnosus (Culturelle) 1 cap BID PO Last administered on 08:02; Start 04/26/17 at 09:00 Potassium Chloride/Sodium Chloride 1,000 ml @ 75 mls/hr [id number] IV Last administered on 04/26/17 08:12; Start 04/25/17 at 21:45 Cefepime HCl (Maxipime) 1 gm Q8HRS IVP Last administered on 04/26/17 06:25; Start 04/25/17 at 22:00 Insulin Detemir (Levemir) 30 units QHS SQ Last administered on 04/25/17 22:34 ; Start 04/25/17 at 21:45 Insulin Aspart (NovoLOG) 0-9 UNITS TIDWMEALS SQ ; Start 04/26/17 at 08:00 Dextrose (Dextrose 50%-Water Syringe) 12.5 gm PRN Q15MIN PRN IV SEE COMMENTS Last administered on 04/26/17 08:02; Start 04/25/17 at 21:45 Active Scripts Active Reported [place] 5-325 Tablet (Acetaminophen/Hydrocodone Bitart) 1 Each Tablet 1 Tab PO PRN Q6HRS PRN Levsin (Hyoscyamine Sulfate) 0.125 Mg Tablet 1 Tab PO PRN Q6HRS Dicyclomine Hcl 20 Mg Tablet 20 Mg PO PRN Q6HRS Promethazine Hcl 25 Mg Tablet 25 Mg PO Q6H PRN Reglan (Metoclopramide Hcl) 10 Mg Tablet 10 Mg PO TID Novolog (Insulin Aspart) 100 Unit/1 Ml Vial 5 Unit SQ TIDBFRMEAL Basaglar Kwikpen U-100 (Insulin Glargine,Hum.rec.anlog) 100 Unit/1 Ml Insuln.pen 40 Unit SQ QHS Hydrocodone-Apap 7.5-325 (Hydrocodone Bit/Acetaminophen) 1 Each Tablet 1 Tab PO Q4HRS Zofran (Ondansetron Hcl) 4 Mg Tablet 4 Mg PO BID PRN Vitals/I & O Vital Sign - Last 24 Hours 04/25/17 04/25/17 04/25/17 04/25/17 16:30 16:47 17:20 18:29 Temp 98.3 98.3 Pulse 113 Resp 16 16 16 B/P (MAP) 126/80 (95) Pulse Ox 97 96 O2 Delivery Room Air 04/25/17 04/25/17 04/25/17 04/25/17 18:32 19:15 19:27 19:31 Pulse 107 110 Resp 18 20 B/P (MAP) 106/63 (77) 100/56 (71) Pulse Ox 96 92 98 99 O2 Delivery Room Air Room Air Nasal Cannula Room Air O2 Flow Rate 2.0 04/25/17 04/25/17 04/25/17 04/25/17 20:00 20:40 20:40 21:02 Temp 98.6 98.6 Pulse 107 107 Resp 19 20 B/P (MAP) 106/64 (78) 100/59 (73) Pulse Ox 99 96 99 O2 Delivery Nasal Cannula Nasal Cannula Nasal Cannula Nasal Cannula O2 Flow Rate 2.0 2.0 2.0 2.0 04/25/17 04/25/17 04/25/17 04/26/17 21:07 23:24 23:27 01:33 Temp 98.7 98.7 Pulse 99 Resp 20 16 20 20 B/P (MAP) 97/57 (70) Pulse Ox 99 98 98 98 O2 Delivery Nasal Cannula Nasal Cannula Nasal Cannula Nasal Cannula O2 Flow Rate 2.0 2.0 2.0 2.0 04/26/17 04/26/17 04/26/17 04/26/17 03:02 04:02 06:26 07:00 Temp 98.6 98.6 Pulse 100 Resp 16 20 20 20 B/P (MAP) 102/62 (75) Pulse Ox 98 98 98 98 O2 Delivery Room Air Nasal Cannula Nasal Cannula O2 Flow Rate 2.0 2.0 2.0 2.0 04/26/17 04/26/17 04/26/17 04/26/17 07:00 08:12 09:16 11:00 Temp 98.3 97.6 98.3 97.6 Pulse 90 92 Resp 16 16 B/P (MAP) 93/62 (72) 98/67 (77) Pulse Ox 95 95 O2 Delivery Room Air Room Air Room Air Room Air 04/26/17 04/26/17 12:08 12:45 O2 Delivery Room Air Room Air Intake and Output 04/25/17 04/25/17 04/26/17 15:00 23:00 07:00 Intake Total 120 ml 420 ml Balance 120 ml 420 ml MELISSA NOONAN MD Apr 26, 2017 14:21
[2017-04-26] MEDS: KETOROLAC 15 MG/ML VIAL. IV PRN (14:27)
[2017-04-26] MEDS ORDERED: ZOLPIDEM 5 MG TABLET. PO PRN (14:30)
[2017-04-26 15:00] VITALS: BP 92/55
[2017-04-26] MEDS: oxyCODONE/APAP 7.5/325 1 TAB TABLET PO PRN ×2 (15:49→20:37)
[2017-04-26] MEDS: MORPHINE SULFATE 4 MG/ML DISP.SYRIN. IV PRN ×2 (17:10→20:37)
[2017-04-26] MEDS ORDERED: ONDANSETRON PF 4 MG/2 ML VIAL. IV PRN (18:30)
[2017-04-26 19:00] VITALS: BP 105/71
[2017-04-26] MEDS: INSULIN DETEMIR 300 UNITS/3 ML INSULN.PEN. SQ SCH (22:35)
[2017-04-26 23:00] VITALS: BP 118/86
[2017-04-27] MEDS: MORPHINE SULFATE 4 MG/ML DISP.SYRIN. IV PRN ×3 (00:48→21:48)
[2017-04-27] MEDS: oxyCODONE/APAP 7.5/325 1 TAB TABLET PO PRN ×2 (00:48→06:09)
[2017-04-27] MEDS: POTASSIUM CL 20MEQ-0.45% NACL 1,000 ML IV SCH ×3 (00:56→23:17)
[2017-04-27 04:00] VITALS: BP 99/60
[2017-04-27 05:22] LABS: BASO % 0 % (0-3); EOS % 5 % (0-3); HEMATOCRIT 34.8 % (36.0-47.0); HEMOGLOBIN 11.4 g/dL (12.0-15.5); LYMPH # 1.2 x10^3/uL (1.0-4.8); LYMPH % 24 % (24-48); MEAN CORPUSCULAR HEMOGLOBIN 31 pg (25-35); MEAN CORPUSCULAR HGB CONC 33 g/dL (31-37); MEAN CORPUSCULAR VOLUME 94 fL (79-100); MONO % 9 % (0-9); NEUT % 62 % (31-73); PLATELET COUNT 265 x10^3/uL (140-400); RED CELL DISTRIBUTION WIDTH 13.8 % (11.5-14.5); WHITE BLOOD COUNT 4.8 x10^3/uL (4.0-11.0)
[2017-04-27 06:05] LABS: ALBUMIN 2.8 g/dL (3.4-5.0); ALBUMIN/GLOBULIN RATIO 0.9 (1.0-1.7); CALCIUM 7.8 mg/dL (8.5-10.1); CREATININE 0.4 mg/dL (0.6-1.0); GFR 194.5; POTASSIUM 3.8 mmol/L (3.5-5.1); TOTAL BILIRUBIN 0.4 mg/dL (0.2-1.0); TOTAL PROTEIN 5.9 g/dL (6.4-8.2)
[2017-04-27 07:00] VITALS: BP 99/70
[2017-04-27] MEDS: INSULIN ASPART 300 UNITS/3 ML INSULN.PEN SQ SCH ×3 (08:00→17:00)
[2017-04-27] MEDS: LINEZOLID 600 MG TABLET PO SCH ×2 (08:45→21:48)
[2017-04-27] MEDS: LACTOBACILLUS RHAMNOSUS GG 1 CAPSULE. PO SCH ×2 (08:45→21:48)
[2017-04-27] MEDS: DEXTROSE 50% 25 GM / 50ML DISP.SYRIN. IV PRN (08:59)
[2017-04-27 10:31] VITALS: BP 103/63
--- NOTE | 2017-04-27 10:53 | PDOC ---
SURGICAL PROGRESS NOTE Subjective Pt with cont RUQ pain, fatigue Vital Signs Vital Signs Date Time Temp Pulse Resp B/P (MAP) Pulse Ox O2 Delivery O2 Flow Rate FiO2 04/27/17 07:10 20 90 Room Air 04/27/17 07:00 98.7 101 99/70 (80) 98.7 04/26/17 07:00 2.0 I&O Intake and Output 04/27/17 07:00 Intake Total 720 ml Balance 720 ml Intake Oral 720 ml # Voids 3 General: Alert, Oriented X3, Cooperative, mild distress Abdomen: Soft, Other (mild TTP RUQ) Labs Laboratory Tests Test 04/25/17 16:30 04/25/17 21:54 04/26/17 05:15 04/26/17 07:34 White Blood Count 10.2 x10^3/uL (4.0-11.0) 7.9 x10^3/uL (4.0-11.0) Red Blood Count 4.31 x10^6/uL (3.50-5.40) 3.61 x10^6/uL (3.50-5.40) Hemoglobin 13.2 g/dL (12.0-15.5) 11.1 g/dL (12.0-15.5) Hematocrit 40.0 % (36.0-47.0) 33.8 % (36.0-47.0) Mean Corpuscular Volume 93 fL (79-100) 94 fL (79-100) Mean Corpuscular Hemoglobin 31 pg (25-35) 31 pg (25-35) Mean Corpuscular Hemoglobin Concent 33 g/dL (31-37) 33 g/dL (31-37) Red Cell Distribution Width 13.5 % (11.5-14.5) 14.2 % (11.5-14.5) Platelet Count 400 x10^3/uL (140-400) 288 x10^3/uL (140-400) Neutrophils (%) (Auto) 65 % (31-73) 52 % (31-73) Lymphocytes (%) (Auto) 25 % (24-48) 35 % (24-48) Monocytes (%) (Auto) 9 % (0-9) 9 % (0-9) Eosinophils (%) (Auto) 1 % (0-3) 4 % (0-3) Basophils (%) (Auto) 0 % (0-3) 1 % (0-3) Neutrophils # (Auto) 6.7 x10^3uL (1.8-7.7) 4.1 x10^3uL (1.8-7.7) Lymphocytes # (Auto) 2.5 x10^3/uL (1.0-4.8) 2.8 x10^3/uL (1.0-4.8) Monocytes # (Auto) 0.9 x10^3/uL (0.0-1.1) 0.7 x10^3/uL (0.0-1.1) Eosinophils # (Auto) 0.1 x10^3/uL (0.0-0.7) 0.3 x10^3/uL (0.0-0.7) Basophils # (Auto) 0.0 x10^3/uL (0.0-0.2) 0.1 x10^3/uL (0.0-0.2) Sodium Level 141 mmol/L (136-145) 140 mmol/L (136-145) Potassium Level 4.1 mmol/L (3.5-5.1) 3.5 mmol/L (3.5-5.1) Chloride Level 102 mmol/L (98-107) 105 mmol/L (98-107) Carbon Dioxide Level 26 mmol/L (21-32) 28 mmol/L (21-32) Anion Gap 13 (6-14) 7 (6-14) Blood Urea Nitrogen 13 mg/dL (7-20) 10 mg/dL (7-20) Creatinine 0.5 mg/dL (0.6-1.0) 0.4 mg/dL (0.6-1.0) Estimated GFR (Cockcroft-Gault) 150.3 194.5 BUN/Creatinine Ratio 26 (6-20) Glucose Level 232 mg/dL (70-99) 101 mg/dL (70-99) Calcium Level 8.5 mg/dL (8.5-10.1) 7.6 mg/dL (8.5-10.1) Total Bilirubin 0.4 mg/dL (0.2-1.0) Aspartate Amino Transf (AST/SGOT) 40 U/L (15-37) Alanine Aminotransferase (ALT/SGPT) 41 U/L (14-59) Alkaline Phosphatase 101 U/L (46-116) Total Protein 7.9 g/dL (6.4-8.2) Albumin 3.7 g/dL (3.4-5.0) Albumin/Globulin Ratio 0.9 (1.0-1.7) Lipase 50 U/L (73-393) Glucose (Fingerstick) 204 mg/dL (70-99) 65 mg/dL (70-99) Test 04/26/17 08:13 04/26/17 11:41 04/26/17 17:06 04/26/17 21:10 Glucose (Fingerstick) 146 mg/dL (70-99) 90 mg/dL (70-99) 149 mg/dL (70-99) 151 mg/dL (70-99) Test 04/27/17 04:00 04/27/17 08:26 White Blood Count 4.8 x10^3/uL (4.0-11.0) Red Blood Count 3.70 x10^6/uL (3.50-5.40) Hemoglobin 11.4 g/dL (12.0-15.5) Hematocrit 34.8 % (36.0-47.0) Mean Corpuscular Volume 94 fL (79-100) Mean Corpuscular Hemoglobin 31 pg (25-35) Mean Corpuscular Hemoglobin Concent 33 g/dL (31-37) Red Cell Distribution Width 13.8 % (11.5-14.5) Platelet Count 265 x10^3/uL (140-400) Neutrophils (%) (Auto) 62 % (31-73) Lymphocytes (%) (Auto) 24 % (24-48) Monocytes (%) (Auto) 9 % (0-9) Eosinophils (%) (Auto) 5 % (0-3) Basophils (%) (Auto) 0 % (0-3) Neutrophils # (Auto) 3.0 x10^3uL (1.8-7.7) Lymphocytes # (Auto) 1.2 x10^3/uL (1.0-4.8) Monocytes # (Auto) 0.4 x10^3/uL (0.0-1.1) Eosinophils # (Auto) 0.2 x10^3/uL (0.0-0.7) Basophils # (Auto) 0.0 x10^3/uL (0.0-0.2) Sodium Level 140 mmol/L (136-145) Potassium Level 3.8 mmol/L (3.5-5.1) Chloride Level 105 mmol/L (98-107) Carbon Dioxide Level 27 mmol/L (21-32) Anion Gap 8 (6-14) Blood Urea Nitrogen 10 mg/dL (7-20) Creatinine 0.4 mg/dL (0.6-1.0) Estimated GFR (Cockcroft-Gault) 194.5 BUN/Creatinine Ratio 25 (6-20) Glucose Level 83 mg/dL (70-99) Calcium Level 7.8 mg/dL (8.5-10.1) Total Bilirubin 0.4 mg/dL (0.2-1.0) Aspartate Amino Transf (AST/SGOT) 461 U/L (15-37) Alanine Aminotransferase (ALT/SGPT) 282 U/L (14-59) Alkaline Phosphatase 121 U/L (46-116) Total Protein 5.9 g/dL (6.4-8.2) Albumin 2.8 g/dL (3.4-5.0) Albumin/Globulin Ratio 0.9 (1.0-1.7) Glucose (Fingerstick) 48 mg/dL (70-99) Laboratory Tests Test 04/26/17 11:41 04/26/17 17:06 04/26/17 21:10 04/27/17 04:00 Glucose (Fingerstick) 90 mg/dL (70-99) 149 mg/dL (70-99) 151 mg/dL (70-99) White Blood Count 4.8 x10^3/uL (4.0-11.0) Red Blood Count 3.70 x10^6/uL (3.50-5.40) Hemoglobin 11.4 g/dL (12.0-15.5) Hematocrit 34.8 % (36.0-47.0) Mean Corpuscular Volume 94 fL (79-100) Mean Corpuscular Hemoglobin 31 pg (25-35) Mean Corpuscular Hemoglobin Concent 33 g/dL (31-37) Red Cell Distribution Width 13.8 % (11.5-14.5) Platelet Count 265 x10^3/uL (140-400) Neutrophils (%) (Auto) 62 % (31-73) Lymphocytes (%) (Auto) 24 % (24-48) Monocytes (%) (Auto) 9 % (0-9) Eosinophils (%) (Auto) 5 % (0-3) Basophils (%) (Auto) 0 % (0-3) Neutrophils # (Auto) 3.0 x10^3uL (1.8-7.7) Lymphocytes # (Auto) 1.2 x10^3/uL (1.0-4.8) Monocytes # (Auto) 0.4 x10^3/uL (0.0-1.1) Eosinophils # (Auto) 0.2 x10^3/uL (0.0-0.7) Basophils # (Auto) 0.0 x10^3/uL (0.0-0.2) Sodium Level 140 mmol/L (136-145) Potassium Level 3.8 mmol/L (3.5-5.1) Chloride Level 105 mmol/L (98-107) Carbon Dioxide Level 27 mmol/L (21-32) Anion Gap 8 (6-14) Blood Urea Nitrogen 10 mg/dL (7-20) Creatinine 0.4 mg/dL (0.6-1.0) Estimated GFR (Cockcroft-Gault) 194.5 BUN/Creatinine Ratio 25 (6-20) Glucose Level 83 mg/dL (70-99) Calcium Level 7.8 mg/dL (8.5-10.1) Total Bilirubin 0.4 mg/dL (0.2-1.0) Aspartate Amino Transf (AST/SGOT) 461 U/L (15-37) Alanine Aminotransferase (ALT/SGPT) 282 U/L (14-59) Alkaline Phosphatase 121 U/L (46-116) Total Protein 5.9 g/dL (6.4-8.2) Albumin 2.8 g/dL (3.4-5.0) Albumin/Globulin Ratio 0.9 (1.0-1.7) Test 04/27/17 08:26 Glucose (Fingerstick) 48 mg/dL (70-99) Problem List Problems Medical Problems: (1) Post-op pain Status: Acute Assessment/Plan will check PIPPDA scan and ask GI to comment cont pain control with toradol Problems: JESSIE GARRETT MD Apr 27, 2017 10:53
[2017-04-27] MEDS: KETOROLAC 15 MG/ML VIAL. IV PRN ×2 (11:52→17:56)
[2017-04-27] MEDS ORDERED: DICYCLOMINE HCL 10 MG CAPSULE PO PRN (12:15)
[2017-04-27] MEDS ORDERED: ONDANSETRON ODT 4 MG TAB.RAPDIS. PO PRN (12:15)
[2017-04-27] MEDS ORDERED: HYOSCYAMINE 0.125 MG TAB.RAPDIS PO PRN (12:15)
[2017-04-27] MEDS ORDERED: PROMETHAZINE 12.5 MG TABLET. PO PRN (12:15)
--- NOTE | 2017-04-27 12:18 | PDOC ---
GI PROGRESS NOTES Date Date/Time DATE: 04/27/17 TIME: 12:16 Subjective Subjective chronic RUQ pain - acute post op L/C pain- CT yesterday- no biola, or signficant findings in Nuc MEd - will see later and dictate consult Objective Vitals Vital Signs Date Time Temp Pulse Resp B/P (MAP) Pulse Ox O2 Delivery O2 Flow Rate FiO2 04/27/17 10:31 97.9 103 18 103/63 (76) 94 Room Air 97.9 04/27/17 07:45 Room Air 04/27/17 07:10 20 90 Room Air 04/27/17 07:00 98.7 101 16 99/70 (80) 95 Room Air 98.7 04/27/17 06:40 20 90 Room Air 04/27/17 06:09 20 90 Room Air 04/27/17 06:09 20 90 Room Air 04/27/17 04:00 98.6 95 18 99/60 (73) 90 Room Air 98.6 04/27/17 00:48 20 95 Room Air 04/27/17 00:48 20 95 Room Air 04/26/17 23:00 98.5 84 18 118/86 (97) 94 Room Air 98.5 04/26/17 20:37 20 95 Room Air 04/26/17 20:37 20 95 Room Air 04/26/17 20:15 Room Air 04/26/17 19:00 98.8 95 18 105/71 (82) 100 Room Air 98.8 04/26/17 17:10 Room Air 04/26/17 15:49 Room Air 04/26/17 15:00 98.6 101 16 92/55 (67) 95 Room Air 98.6 04/26/17 12:45 Room Air Labs Labs Laboratory Tests Test 04/26/17 17:06 04/26/17 21:10 04/27/17 04:00 04/27/17 08:26 Glucose (Fingerstick) 149 mg/dL (70-99) 151 mg/dL (70-99) 48 mg/dL (70-99) White Blood Count 4.8 x10^3/uL (4.0-11.0) Red Blood Count 3.70 x10^6/uL (3.50-5.40) Hemoglobin 11.4 g/dL (12.0-15.5) Hematocrit 34.8 % (36.0-47.0) Mean Corpuscular Volume 94 fL (79-100) Mean Corpuscular Hemoglobin 31 pg (25-35) Mean Corpuscular Hemoglobin Concent 33 g/dL (31-37) Red Cell Distribution Width 13.8 % (11.5-14.5) Platelet Count 265 x10^3/uL (140-400) Neutrophils (%) (Auto) 62 % (31-73) Lymphocytes (%) (Auto) 24 % (24-48) Monocytes (%) (Auto) 9 % (0-9) Eosinophils (%) (Auto) 5 % (0-3) Basophils (%) (Auto) 0 % (0-3) Neutrophils # (Auto) 3.0 x10^3uL (1.8-7.7) Lymphocytes # (Auto) 1.2 x10^3/uL (1.0-4.8) Monocytes # (Auto) 0.4 x10^3/uL (0.0-1.1) Eosinophils # (Auto) 0.2 x10^3/uL (0.0-0.7) Basophils # (Auto) 0.0 x10^3/uL (0.0-0.2) Sodium Level 140 mmol/L (136-145) Potassium Level 3.8 mmol/L (3.5-5.1) Chloride Level 105 mmol/L (98-107) Carbon Dioxide Level 27 mmol/L (21-32) Anion Gap 8 (6-14) Blood Urea Nitrogen 10 mg/dL (7-20) Creatinine 0.4 mg/dL (0.6-1.0) Estimated GFR (Cockcroft-Gault) 194.5 BUN/Creatinine Ratio 25 (6-20) Glucose Level 83 mg/dL (70-99) Calcium Level 7.8 mg/dL (8.5-10.1) Total Bilirubin 0.4 mg/dL (0.2-1.0) Aspartate Amino Transf (AST/SGOT) 461 U/L (15-37) Alanine Aminotransferase (ALT/SGPT) 282 U/L (14-59) Alkaline Phosphatase 121 U/L (46-116) Total Protein 5.9 g/dL (6.4-8.2) Albumin 2.8 g/dL (3.4-5.0) Albumin/Globulin Ratio 0.9 (1.0-1.7) Test 04/27/17 09:16 04/27/17 11:11 Glucose (Fingerstick) 123 mg/dL (70-99) 176 mg/dL (70-99) RAPHAEL COBOS MD Apr 27, 2017 12:18
[2017-04-27] MEDS ORDERED: HYDROcodone/APAP 7.5/325MG 1 TAB TABLET PO SCH (12:30)
[2017-04-27] MEDS: HYDROcodone/APAP 7.5/325MG 1 TAB TABLET PO PRN ×3 (13:21→23:16)
--- NOTE | 2017-04-27 13:44 | PDOC ---
PROGRESS NOTES Chief Complaint Chief Complaint Dm1 post lap melvin pain, normal CT Obesity Elevated LFts History of Present Illness History of Present Illness Patient had lap cholecystectomy on April 24, apparently was discharged with still in pain as per patient. Came back because of postop pain. CAT scan of abdomen and pelvis -normal postsurgical changes. GS has consulted GI , PIPIDA scan. hypoGlycemic this morning, her home regimen of 40 Lantus at night has been decreased to 30 units. I will further decreased to 15 units she is still not eating much because of abdominal pain and nausea Plan await PIPIDA scan. I have a feeling PIPIDA will otherwise be unremarkable. I will add or resume her home medications including bentyl to make it scheduled instead of when necessary. Add ibuprofen scheduled deCrease Lantus to 15 units subcutaneous daily at bedtime Keep Sliding-scale insulin Further recs pending above course if she gets better with just a mere pain management or alterations of her pain medicines Had provided her a copy of her normal CAT scan and her elevated LFTs on blood work Vitals Vitals Vital Signs Date Time Temp Pulse Resp B/P (MAP) Pulse Ox O2 Delivery O2 Flow Rate FiO2 04/27/17 13:21 Room Air 04/27/17 10:31 97.9 103 18 103/63 (76) 94 97.9 04/26/17 07:00 2.0 Physical Exam General: Alert, Oriented X3, Cooperative, mild distress Heart: Regular rate, No murmurs Abdomen: Soft, Other (mild TTP RUQ) Extremities: No edema Skin: No significant lesion Labs LABS Laboratory Tests Test 04/26/17 17:06 04/26/17 21:10 04/27/17 04:00 04/27/17 08:26 Glucose (Fingerstick) 149 mg/dL (70-99) 151 mg/dL (70-99) 48 mg/dL (70-99) White Blood Count 4.8 x10^3/uL (4.0-11.0) Red Blood Count 3.70 x10^6/uL (3.50-5.40) Hemoglobin 11.4 g/dL (12.0-15.5) Hematocrit 34.8 % (36.0-47.0) Mean Corpuscular Volume 94 fL (79-100) Mean Corpuscular Hemoglobin 31 pg (25-35) Mean Corpuscular Hemoglobin Concent 33 g/dL (31-37) Red Cell Distribution Width 13.8 % (11.5-14.5) Platelet Count 265 x10^3/uL (140-400) Neutrophils (%) (Auto) 62 % (31-73) Lymphocytes (%) (Auto) 24 % (24-48) Monocytes (%) (Auto) 9 % (0-9) Eosinophils (%) (Auto) 5 % (0-3) Basophils (%) (Auto) 0 % (0-3) Neutrophils # (Auto) 3.0 x10^3uL (1.8-7.7) Lymphocytes # (Auto) 1.2 x10^3/uL (1.0-4.8) Monocytes # (Auto) 0.4 x10^3/uL (0.0-1.1) Eosinophils # (Auto) 0.2 x10^3/uL (0.0-0.7) Basophils # (Auto) 0.0 x10^3/uL (0.0-0.2) Sodium Level 140 mmol/L (136-145) Potassium Level 3.8 mmol/L (3.5-5.1) Chloride Level 105 mmol/L (98-107) Carbon Dioxide Level 27 mmol/L (21-32) Anion Gap 8 (6-14) Blood Urea Nitrogen 10 mg/dL (7-20) Creatinine 0.4 mg/dL (0.6-1.0) Estimated GFR (Cockcroft-Gault) 194.5 BUN/Creatinine Ratio 25 (6-20) Glucose Level 83 mg/dL (70-99) Calcium Level 7.8 mg/dL (8.5-10.1) Total Bilirubin 0.4 mg/dL (0.2-1.0) Aspartate Amino Transf (AST/SGOT) 461 U/L (15-37) Alanine Aminotransferase (ALT/SGPT) 282 U/L (14-59) Alkaline Phosphatase 121 U/L (46-116) Total Protein 5.9 g/dL (6.4-8.2) Albumin 2.8 g/dL (3.4-5.0) Albumin/Globulin Ratio 0.9 (1.0-1.7) Test 04/27/17 09:16 04/27/17 11:11 Glucose (Fingerstick) 123 mg/dL (70-99) 176 mg/dL (70-99) Review of Systems Review of Systems Abdominal pain, nausea, trying to eat per day, no chest pain no shortness of breath Rest of ROS 14 point negative Assessment and Plan Assessmemt and Plan Problems Medical Problems: (1) Post-op pain Status: Acute Problems: Comment Review of Relevant I have reviewed the following items julieta (where applicable) has been applied. Labs Laboratory Tests Test 04/25/17 16:30 04/25/17 21:54 04/26/17 05:15 04/26/17 07:34 White Blood Count 10.2 x10^3/uL (4.0-11.0) 7.9 x10^3/uL (4.0-11.0) Red Blood Count 4.31 x10^6/uL (3.50-5.40) 3.61 x10^6/uL (3.50-5.40) Hemoglobin 13.2 g/dL (12.0-15.5) 11.1 g/dL (12.0-15.5) Hematocrit 40.0 % (36.0-47.0) 33.8 % (36.0-47.0) Mean Corpuscular Volume 93 fL (79-100) 94 fL (79-100) Mean Corpuscular Hemoglobin 31 pg (25-35) 31 pg (25-35) Mean Corpuscular Hemoglobin Concent 33 g/dL (31-37) 33 g/dL (31-37) Red Cell Distribution Width 13.5 % (11.5-14.5) 14.2 % (11.5-14.5) Platelet Count 400 x10^3/uL (140-400) 288 x10^3/uL (140-400) Neutrophils (%) (Auto) 65 % (31-73) 52 % (31-73) Lymphocytes (%) (Auto) 25 % (24-48) 35 % (24-48) Monocytes (%) (Auto) 9 % (0-9) 9 % (0-9) Eosinophils (%) (Auto) 1 % (0-3) 4 % (0-3) Basophils (%) (Auto) 0 % (0-3) 1 % (0-3) Neutrophils # (Auto) 6.7 x10^3uL (1.8-7.7) 4.1 x10^3uL (1.8-7.7) Lymphocytes # (Auto) 2.5 x10^3/uL (1.0-4.8) 2.8 x10^3/uL (1.0-4.8) Monocytes # (Auto) 0.9 x10^3/uL (0.0-1.1) 0.7 x10^3/uL (0.0-1.1) Eosinophils # (Auto) 0.1 x10^3/uL (0.0-0.7) 0.3 x10^3/uL (0.0-0.7) Basophils # (Auto) 0.0 x10^3/uL (0.0-0.2) 0.1 x10^3/uL (0.0-0.2) Sodium Level 141 mmol/L (136-145) 140 mmol/L (136-145) Potassium Level 4.1 mmol/L (3.5-5.1) 3.5 mmol/L (3.5-5.1) Chloride Level 102 mmol/L (98-107) 105 mmol/L (98-107) Carbon Dioxide Level 26 mmol/L (21-32) 28 mmol/L (21-32) Anion Gap 13 (6-14) 7 (6-14) Blood Urea Nitrogen 13 mg/dL (7-20) 10 mg/dL (7-20) Creatinine 0.5 mg/dL (0.6-1.0) 0.4 mg/dL (0.6-1.0) Estimated GFR (Cockcroft-Gault) 150.3 194.5 BUN/Creatinine Ratio 26 (6-20) Glucose Level 232 mg/dL (70-99) 101 mg/dL (70-99) Calcium Level 8.5 mg/dL (8.5-10.1) 7.6 mg/dL (8.5-10.1) Total Bilirubin 0.4 mg/dL (0.2-1.0) Aspartate Amino Transf (AST/SGOT) 40 U/L (15-37) Alanine Aminotransferase (ALT/SGPT) 41 U/L (14-59) Alkaline Phosphatase 101 U/L (46-116) Total Protein 7.9 g/dL (6.4-8.2) Albumin 3.7 g/dL (3.4-5.0) Albumin/Globulin Ratio 0.9 (1.0-1.7) Lipase 50 U/L (73-393) Glucose (Fingerstick) 204 mg/dL (70-99) 65 mg/dL (70-99) Test 04/26/17 08:13 04/26/17 11:41 04/26/17 17:06 04/26/17 21:10 Glucose (Fingerstick) 146 mg/dL (70-99) 90 mg/dL (70-99) 149 mg/dL (70-99) 151 mg/dL (70-99) Test 04/27/17 04:00 04/27/17 08:26 04/27/17 09:16 04/27/17 11:11 White Blood Count 4.8 x10^3/uL (4.0-11.0) Red Blood Count 3.70 x10^6/uL (3.50-5.40) Hemoglobin 11.4 g/dL (12.0-15.5) Hematocrit 34.8 % (36.0-47.0) Mean Corpuscular Volume 94 fL (79-100) Mean Corpuscular Hemoglobin 31 pg (25-35) Mean Corpuscular Hemoglobin Concent 33 g/dL (31-37) Red Cell Distribution Width 13.8 % (11.5-14.5) Platelet Count 265 x10^3/uL (140-400) Neutrophils (%) (Auto) 62 % (31-73) Lymphocytes (%) (Auto) 24 % (24-48) Monocytes (%) (Auto) 9 % (0-9) Eosinophils (%) (Auto) 5 % (0-3) Basophils (%) (Auto) 0 % (0-3) Neutrophils # (Auto) 3.0 x10^3uL (1.8-7.7) Lymphocytes # (Auto) 1.2 x10^3/uL (1.0-4.8) Monocytes # (Auto) 0.4 x10^3/uL (0.0-1.1) Eosinophils # (Auto) 0.2 x10^3/uL (0.0-0.7) Basophils # (Auto) 0.0 x10^3/uL (0.0-0.2) Sodium Level 140 mmol/L (136-145) Potassium Level 3.8 mmol/L (3.5-5.1) Chloride Level 105 mmol/L (98-107) Carbon Dioxide Level 27 mmol/L (21-32) Anion Gap 8 (6-14) Blood Urea Nitrogen 10 mg/dL (7-20) Creatinine 0.4 mg/dL (0.6-1.0) Estimated GFR (Cockcroft-Gault) 194.5 BUN/Creatinine Ratio 25 (6-20) Glucose Level 83 mg/dL (70-99) Calcium Level 7.8 mg/dL (8.5-10.1) Total Bilirubin 0.4 mg/dL (0.2-1.0) Aspartate Amino Transf (AST/SGOT) 461 U/L (15-37) Alanine Aminotransferase (ALT/SGPT) 282 U/L (14-59) Alkaline Phosphatase 121 U/L (46-116) Total Protein 5.9 g/dL (6.4-8.2) Albumin 2.8 g/dL (3.4-5.0) Albumin/Globulin Ratio 0.9 (1.0-1.7) Glucose (Fingerstick) 48 mg/dL (70-99) 123 mg/dL (70-99) 176 mg/dL (70-99) Laboratory Tests Test 04/26/17 17:06 04/26/17 21:10 04/27/17 04:00 04/27/17 08:26 Glucose (Fingerstick) 149 mg/dL (70-99) 151 mg/dL (70-99) 48 mg/dL (70-99) White Blood Count 4.8 x10^3/uL (4.0-11.0) Red Blood Count 3.70 x10^6/uL (3.50-5.40) Hemoglobin 11.4 g/dL (12.0-15.5) Hematocrit 34.8 % (36.0-47.0) Mean Corpuscular Volume 94 fL (79-100) Mean Corpuscular Hemoglobin 31 pg (25-35) Mean Corpuscular Hemoglobin Concent 33 g/dL (31-37) Red Cell Distribution Width 13.8 % (11.5-14.5) Platelet Count 265 x10^3/uL (140-400) Neutrophils (%) (Auto) 62 % (31-73) Lymphocytes (%) (Auto) 24 % (24-48) Monocytes (%) (Auto) 9 % (0-9) Eosinophils (%) (Auto) 5 % (0-3) Basophils (%) (Auto) 0 % (0-3) Neutrophils # (Auto) 3.0 x10^3uL (1.8-7.7) Lymphocytes # (Auto) 1.2 x10^3/uL (1.0-4.8) Monocytes # (Auto) 0.4 x10^3/uL (0.0-1.1) Eosinophils # (Auto) 0.2 x10^3/uL (0.0-0.7) Basophils # (Auto) 0.0 x10^3/uL (0.0-0.2) Sodium Level 140 mmol/L (136-145) Potassium Level 3.8 mmol/L (3.5-5.1) Chloride Level 105 mmol/L (98-107) Carbon Dioxide Level 27 mmol/L (21-32) Anion Gap 8 (6-14) Blood Urea Nitrogen 10 mg/dL (7-20) Creatinine 0.4 mg/dL (0.6-1.0) Estimated GFR (Cockcroft-Gault) 194.5 BUN/Creatinine Ratio 25 (6-20) Glucose Level 83 mg/dL (70-99) Calcium Level 7.8 mg/dL (8.5-10.1) Total Bilirubin 0.4 mg/dL (0.2-1.0) Aspartate Amino Transf (AST/SGOT) 461 U/L (15-37) Alanine Aminotransferase (ALT/SGPT) 282 U/L (14-59) Alkaline Phosphatase 121 U/L (46-116) Total Protein 5.9 g/dL (6.4-8.2) Albumin 2.8 g/dL (3.4-5.0) Albumin/Globulin Ratio 0.9 (1.0-1.7) Test 04/27/17 09:16 04/27/17 11:11 Glucose (Fingerstick) 123 mg/dL (70-99) 176 mg/dL (70-99) Medications Current Medications Hydromorphone HCl (Dilaudid) 1 mg PRN Q15MIN PRN IV/SQ PAIN GREATER THAN 3/10 Last administered on 04/25/17 19:31; Start 04/25/17 at 16:30; Stop 04/25/17 at 21:43; Status DC Sodium Chloride 1,000 ml @ 1,000 mls/hr Q1H IV Last administered on 16:49; Start 04/25/17 at 16:29; Stop 04/25/17 at 17:28; Status DC Iohexol (Omnipaque 300 Mg/ml) 75 ml 1X ONCE IV ; Start 04/25/17 at 17:15; Stop 04/25/17 at 17:16; Status DC Info (Do NOT chart on this entry -- for MONITORING) 1 each PRN DAILY PRN MC SEE COMMENTS; Start 04/25/17 at 17:00; Stop 04/27/17 at 16:59 Ondansetron HCl (Zofran) 4 mg PRN Q8HRS PRN IV NAUSEA/VOMITING Last administered on 04/25/17 21:03; Start 04/25/17 at 18:30; Stop 04/26/17 at 18 :29; Status DC Morphine Sulfate 2 mg PRN Q2HR PRN IV PAIN Last administered on 04/26/17 12: 08; Start 04/25/17 at 18:30; Stop 04/26/17 at 14:12; Status DC Cefepime HCl 1 gm/ Dextrose 50 ml @ 100 mls/hr Q8HRS IV ; Start 04/25/17 at 22 :00; Status UNV Linezolid (Zyvox) 600 mg BID PO Last administered on 04/27/17 08:45; Start 04/25/17 at 22:00 Lactobacillus Rhamnosus (Culturelle) 1 cap BID PO Last administered on 08:45; Start 04/26/17 at 09:00 Potassium Chloride/Sodium Chloride 1,000 ml @ 75 mls/hr [id number] IV Last administered on 04/27/17 06:10; Start 04/25/17 at 21:45 Cefepime HCl (Maxipime) 1 gm Q8HRS IVP Last administered on 04/26/17 06:25; Start 04/25/17 at 22:00; Stop 04/26/17 at 14:20; Status DC Insulin Detemir (Levemir) 30 units QHS SQ Last administered on 04/26/17 22:35 ; Start 04/25/17 at 21:45; Stop 04/27/17 at 11:57; Status DC Insulin Aspart (NovoLOG) 0-9 UNITS TIDWMEALS SQ ; Start 04/26/17 at 08:00 Dextrose (Dextrose 50%-Water Syringe) 12.5 gm PRN Q15MIN PRN IV SEE COMMENTS Last administered on 04/27/17 08:59; Start 04/25/17 at 21:45 Morphine Sulfate 4 mg PRN Q2HR PRN IV PAIN Last administered on 04/27/17 06: 09; Start 04/26/17 at 14:30 Oxycodone/ Acetaminophen (Percocet 7.5/ 325) 1 tab PRN Q4HRS PRN PO PAIN Last administered on 04/27/17 06:09; Start 04/26/17 at 14:15 Ketorolac Tromethamine (Toradol) 15 mg PRN Q6HRS PRN IV PAIN Last administered on 04/27/17 11:52; Start 04/26/17 at 14:30; Stop 05/01/17 at 14:29 Zolpidem Tartrate (Ambien) 5 mg PRN QHS PRN PO INSOMNIA; Start 04/26/17 at 14: 30 Ondansetron HCl (Zofran) 4 mg PRN Q6HRS PRN IV NAUSEA/VOMITING Last administered on 04/26/17 18:36; Start 04/26/17 at 18:30 Acetaminophen/ Hydrocodone Bitart (Lortab 7.5/325) 1 tab Q4HRS PO ; Start 04/27 at 12:30; Stop 04/27/17 at 12:30; Status DC Dicyclomine HCl (Bentyl) 20 mg PRN Q6HRS PRN PO GI SYMPTOMS; Start 04/27/17 at 12:15 Hyoscyamine (Anaspaz) 0.125 mg PRN Q6HRS PRN PO STOMACH CRAMPING; Start at 12:15 Ondansetron HCl (Zofran Odt) 4 mg PRN BID PRN PO NAUSEA/VOMITING; Start at 12:15 Promethazine HCl (Phenergan) 25 mg PRN Q6HRS PRN PO NAUSEA/VOMITING; Start at 12:15 Insulin Detemir (Levemir) 15 units QHS SQ ; Start 04/27/17 at 21:00 Acetaminophen/ Hydrocodone Bitart (Lortab 7.5/325) 1 tab PRN Q4HRS PRN PO PAIN Last administered on 04/27/17t 13:21; Start 04/27/17 at 12:15 Active Scripts Active Reported [place] 5-325 Tablet (Acetaminophen/Hydrocodone Bitart) 1 Each Tablet 1 Tab PO PRN Q6HRS PRN Levsin (Hyoscyamine Sulfate) 0.125 Mg Tablet 1 Tab PO PRN Q6HRS Dicyclomine Hcl 20 Mg Tablet 20 Mg PO PRN Q6HRS Promethazine Hcl 25 Mg Tablet 25 Mg PO Q6H PRN Reglan (Metoclopramide Hcl) 10 Mg Tablet 10 Mg PO TID Novolog (Insulin Aspart) 100 Unit/1 Ml Vial 5 Unit SQ TIDBFRMEAL Basaglar Kwikpen U-100 (Insulin Glargine,Hum.rec.anlog) 100 Unit/1 Ml Insuln.pen 40 Unit SQ QHS Hydrocodone-Apap 7.5-325 (Hydrocodone Bit/Acetaminophen) 1 Each Tablet 1 Tab PO Q4HRS Zofran (Ondansetron Hcl) 4 Mg Tablet 4 Mg PO BID PRN Vitals/I & O Vital Sign - Last 24 Hours 04/26/17 04/26/17 04/26/17 04/26/17 15:00 15:49 17:10 19:00 Temp 98.6 98.8 98.6 98.8 Pulse 101 95 Resp 16 18 B/P (MAP) 92/55 (67) 105/71 (82) Pulse Ox 95 100 O2 Delivery Room Air Room Air Room Air Room Air 04/26/17 04/26/17 04/26/17 04/26/17 20:15 20:37 20:37 23:00 Temp 98.5 98.5 Pulse 84 Resp 20 20 18 B/P (MAP) 118/86 (97) Pulse Ox 95 95 94 O2 Delivery Room Air Room Air Room Air Room Air 04/27/17 04/27/17 04/27/17 04/27/17 00:48 00:48 04:00 06:09 Temp 98.6 98.6 Pulse 95 Resp 20 20 18 20 B/P (MAP) 99/60 (73) Pulse Ox 95 95 90 90 O2 Delivery Room Air Room Air Room Air Room Air 04/27/17 04/27/17 04/27/17 04/27/17 06:09 06:40 07:00 07:10 Temp 98.7 98.7 Pulse 101 Resp 20 20 16 20 B/P (MAP) 99/70 (80) Pulse Ox 90 90 95 90 O2 Delivery Room Air Room Air Room Air Room Air 04/27/17 04/27/17 04/27/17 07:45 10:31 13:21 Temp 97.9 97.9 Pulse 103 Resp 18 B/P (MAP) 103/63 (76) Pulse Ox 94 O2 Delivery Room Air Room Air Room Air Intake and Output 04/26/17 04/26/17 04/27/17 15:00 23:00 07:00 Intake Total 360 ml 240 ml 120 ml Balance 360 ml 240 ml 120 ml JUSTICE RDZ MD Apr 27, 2017 13:44
--- NOTE | 2017-04-27 13:52 | RAD ---
EXAM: Nuclear hepatobiliary scan. 04/27/2017 HISTORY: Postcholecystectomy with 3 days of right upper quadrant abdominal pain. Comparison: CT abdomen and pelvis 04/25/2017 TECHNIQUE: Following intravenous administration of 5.5 mCi Tc 99m Choletec, anterior images of the abdomen were obtained at five minute intervals through one hour. FINDINGS: There is prompt radiotracer uptake by the liver with excretion into the biliary system and through the proximal small bowel. There is no focal static accumulation of radiotracer in the gallbladder fossa to suggest leak. Impression: No scintigraphic evidence to suggest biliary leak.
[2017-04-27 14:50] VITALS: BP 93/60
[2017-04-27] MEDS: IBUPROFEN 600 MG TABLET. PO SCH ×2 (15:32→21:48)
[2017-04-27] MEDS: DICYCLOMINE HCL 10 MG CAPSULE PO SCH ×3 (15:33→21:48)
[2017-04-27 19:00] VITALS: BP 102/68
[2017-04-27] MEDS ORDERED: INSULIN DETEMIR 300 UNITS/3 ML INSULN.PEN. SQ SCH (21:00)
[2017-04-27 23:00] VITALS: BP 109/74
[2017-04-28 03:00] VITALS: BP 106/72
[2017-04-28] MEDS: oxyCODONE/APAP 7.5/325 1 TAB TABLET PO PRN ×4 (04:57→18:39)
[2017-04-28] MEDS: DEXTROSE 50% 25 GM / 50ML DISP.SYRIN. IV PRN (05:11)
[2017-04-28 07:00] VITALS: BP 89/57
[2017-04-28] MEDS: INSULIN ASPART 300 UNITS/3 ML INSULN.PEN SQ SCH ×3 (08:00→17:00)
[2017-04-28] MEDS: DICYCLOMINE HCL 10 MG CAPSULE PO SCH ×4 (09:15→21:12)
[2017-04-28] MEDS: LINEZOLID 600 MG TABLET PO SCH ×2 (09:15→21:11)
[2017-04-28] MEDS: LACTOBACILLUS RHAMNOSUS GG 1 CAPSULE. PO SCH ×2 (09:16→21:12)
[2017-04-28] MEDS: KETOROLAC 15 MG/ML VIAL. IV PRN ×3 (09:17→21:12)
--- NOTE | 2017-04-28 09:39 | PDOC ---
SURGICAL PROGRESS NOTE Subjective Pt with c/o persistent RUQ pain, min PO intake Vital Signs Vital Signs Date Time Temp Pulse Resp B/P (MAP) Pulse Ox O2 Delivery O2 Flow Rate FiO2 04/28/17 09:16 95 Room Air 04/28/17 07:00 98.7 93 18 89/57 (68) 98.7 I&O Intake and Output 04/28/17 07:00 Intake Total 300 ml Balance 300 ml Intake Oral 300 ml # Voids 2 General: Alert, Oriented X3, Cooperative, mild distress Abdomen: Soft, Other (mild TTP RUQ) Labs Laboratory Tests Test 04/26/17 11:41 04/26/17 17:06 04/26/17 21:10 04/27/17 04:00 Glucose (Fingerstick) 90 mg/dL (70-99) 149 mg/dL (70-99) 151 mg/dL (70-99) White Blood Count 4.8 x10^3/uL (4.0-11.0) Red Blood Count 3.70 x10^6/uL (3.50-5.40) Hemoglobin 11.4 g/dL (12.0-15.5) Hematocrit 34.8 % (36.0-47.0) Mean Corpuscular Volume 94 fL (79-100) Mean Corpuscular Hemoglobin 31 pg (25-35) Mean Corpuscular Hemoglobin Concent 33 g/dL (31-37) Red Cell Distribution Width 13.8 % (11.5-14.5) Platelet Count 265 x10^3/uL (140-400) Neutrophils (%) (Auto) 62 % (31-73) Lymphocytes (%) (Auto) 24 % (24-48) Monocytes (%) (Auto) 9 % (0-9) Eosinophils (%) (Auto) 5 % (0-3) Basophils (%) (Auto) 0 % (0-3) Neutrophils # (Auto) 3.0 x10^3uL (1.8-7.7) Lymphocytes # (Auto) 1.2 x10^3/uL (1.0-4.8) Monocytes # (Auto) 0.4 x10^3/uL (0.0-1.1) Eosinophils # (Auto) 0.2 x10^3/uL (0.0-0.7) Basophils # (Auto) 0.0 x10^3/uL (0.0-0.2) Sodium Level 140 mmol/L (136-145) Potassium Level 3.8 mmol/L (3.5-5.1) Chloride Level 105 mmol/L (98-107) Carbon Dioxide Level 27 mmol/L (21-32) Anion Gap 8 (6-14) Blood Urea Nitrogen 10 mg/dL (7-20) Creatinine 0.4 mg/dL (0.6-1.0) Estimated GFR (Cockcroft-Gault) 194.5 BUN/Creatinine Ratio 25 (6-20) Glucose Level 83 mg/dL (70-99) Calcium Level 7.8 mg/dL (8.5-10.1) Total Bilirubin 0.4 mg/dL (0.2-1.0) Aspartate Amino Transf (AST/SGOT) 461 U/L (15-37) Alanine Aminotransferase (ALT/SGPT) 282 U/L (14-59) Alkaline Phosphatase 121 U/L (46-116) Total Protein 5.9 g/dL (6.4-8.2) Albumin 2.8 g/dL (3.4-5.0) Albumin/Globulin Ratio 0.9 (1.0-1.7) Test 04/27/17 08:26 04/27/17 09:16 04/27/17 11:11 04/27/17 16:29 Glucose (Fingerstick) 48 mg/dL (70-99) 123 mg/dL (70-99) 176 mg/dL (70-99) 133 mg/dL (70-99) Test 04/27/17 20:42 04/28/17 05:00 04/28/17 05:47 04/28/17 07:37 Glucose (Fingerstick) 152 mg/dL (70-99) 48 mg/dL (70-99) 168 mg/dL (70-99) 134 mg/dL (70-99) Laboratory Tests Test 04/27/17 11:11 04/27/17 16:29 04/27/17 20:42 04/28/17 05:00 Glucose (Fingerstick) 176 mg/dL (70-99) 133 mg/dL (70-99) 152 mg/dL (70-99) 48 mg/dL (70-99) Test 04/28/17 05:47 04/28/17 07:37 Glucose (Fingerstick) 168 mg/dL (70-99) 134 mg/dL (70-99) I have reviewed the following [facility] Problem List Problems Medical Problems: (1) Post-op pain Status: Acute Assessment/Plan abd pain no obvious surgical cause appreciate GI involvement pain control and ADAT d/w pt and pt's boyfriend Problems: JESSIE GARRETT MD Apr 28, 2017 09:39
[2017-04-28 11:00] VITALS: BP 122/80
[2017-04-28] MEDS: IBUPROFEN 600 MG TABLET. PO SCH ×3 (11:19→21:12)
[2017-04-28] MEDS: POTASSIUM CL 20MEQ-0.45% NACL 1,000 ML IV SCH ×2 (11:20→18:43)
--- NOTE | 2017-04-28 14:46 | PDOC ---
PROGRESS NOTES Chief Complaint Chief Complaint Dm1 post lap melvin pain, normal CT, normal HIDA scan Obesity Elevated LFts History of Present Illness History of Present Illness CT scan abdomen is normal PIPIDA scan is also normal I provided her copies of these results. Gen. surgery has also dwq her the normal test results, normal, postop changes, hence patient will be started on ADA diet. She is a diabetic type I She is not eating still there are some periods of hypoglycemic in the morning, for 2 consecutive days now. Because she does not want to eat I did discuss with her that tomorrow she will be discharged. I did bargain for today. She claims she wants to see if she will not vomited from her regular diet today. Plan : I will stop IV pain medicines and potassium containing IVF. To encourage her to have by mouth intake. She needs to go home tomorrow as there is nothing wrong with her, home tomorrow if she keeps everything down Vitals Vitals Vital Signs Date Time Temp Pulse Resp B/P (MAP) Pulse Ox O2 Delivery O2 Flow Rate FiO2 04/28/17 13:38 97 Room Air 04/28/17 11:00 98.6 95 18 122/80 (94) 98.6 04/28/17 10:10 2.0 Physical Exam General: Alert, Oriented X3, Cooperative, mild distress Heart: Regular rate, No murmurs Abdomen: Soft, Other (mild TTP RUQ) Extremities: No clubbing, No edema Skin: No rashes, No significant lesion Labs LABS Laboratory Tests Test 04/27/17 16:29 04/27/17 20:42 04/28/17 05:00 04/28/17 05:47 Glucose (Fingerstick) 133 mg/dL (70-99) 152 mg/dL (70-99) 48 mg/dL (70-99) 168 mg/dL (70-99) Test 04/28/17 07:37 04/28/17 11:39 Glucose (Fingerstick) 134 mg/dL (70-99) 183 mg/dL (70-99) Review of Systems Review of Systems Abdominal pain, minimal by mouth intake The rest of review of systems 14 point systems reviewed negative Assessment and Plan Assessmemt and Plan Problems Medical Problems: (1) Post-op pain Status: Acute Problems: Comment Review of Relevant I have reviewed the following items julieta (where applicable) has been applied. Labs Laboratory Tests Test 04/26/17 17:06 04/26/17 21:10 04/27/17 04:00 04/27/17 08:26 Glucose (Fingerstick) 149 mg/dL (70-99) 151 mg/dL (70-99) 48 mg/dL (70-99) White Blood Count 4.8 x10^3/uL (4.0-11.0) Red Blood Count 3.70 x10^6/uL (3.50-5.40) Hemoglobin 11.4 g/dL (12.0-15.5) Hematocrit 34.8 % (36.0-47.0) Mean Corpuscular Volume 94 fL (79-100) Mean Corpuscular Hemoglobin 31 pg (25-35) Mean Corpuscular Hemoglobin Concent 33 g/dL (31-37) Red Cell Distribution Width 13.8 % (11.5-14.5) Platelet Count 265 x10^3/uL (140-400) Neutrophils (%) (Auto) 62 % (31-73) Lymphocytes (%) (Auto) 24 % (24-48) Monocytes (%) (Auto) 9 % (0-9) Eosinophils (%) (Auto) 5 % (0-3) Basophils (%) (Auto) 0 % (0-3) Neutrophils # (Auto) 3.0 x10^3uL (1.8-7.7) Lymphocytes # (Auto) 1.2 x10^3/uL (1.0-4.8) Monocytes # (Auto) 0.4 x10^3/uL (0.0-1.1) Eosinophils # (Auto) 0.2 x10^3/uL (0.0-0.7) Basophils # (Auto) 0.0 x10^3/uL (0.0-0.2) Sodium Level 140 mmol/L (136-145) Potassium Level 3.8 mmol/L (3.5-5.1) Chloride Level 105 mmol/L (98-107) Carbon Dioxide Level 27 mmol/L (21-32) Anion Gap 8 (6-14) Blood Urea Nitrogen 10 mg/dL (7-20) Creatinine 0.4 mg/dL (0.6-1.0) Estimated GFR (Cockcroft-Gault) 194.5 BUN/Creatinine Ratio 25 (6-20) Glucose Level 83 mg/dL (70-99) Calcium Level 7.8 mg/dL (8.5-10.1) Total Bilirubin 0.4 mg/dL (0.2-1.0) Aspartate Amino Transf (AST/SGOT) 461 U/L (15-37) Alanine Aminotransferase (ALT/SGPT) 282 U/L (14-59) Alkaline Phosphatase 121 U/L (46-116) Total Protein 5.9 g/dL (6.4-8.2) Albumin 2.8 g/dL (3.4-5.0) Albumin/Globulin Ratio 0.9 (1.0-1.7) Test 04/27/17 09:16 04/27/17 11:11 04/27/17 16:29 04/27/17 20:42 Glucose (Fingerstick) 123 mg/dL (70-99) 176 mg/dL (70-99) 133 mg/dL (70-99) 152 mg/dL (70-99) Test 04/28/17 05:00 04/28/17 05:47 04/28/17 07:37 04/28/17 11:39 Glucose (Fingerstick) 48 mg/dL (70-99) 168 mg/dL (70-99) 134 mg/dL (70-99) 183 mg/dL (70-99) Laboratory Tests Test 04/27/17 16:29 04/27/17 20:42 04/28/17 05:00 04/28/17 05:47 Glucose (Fingerstick) 133 mg/dL (70-99) 152 mg/dL (70-99) 48 mg/dL (70-99) 168 mg/dL (70-99) Test 04/28/17 07:37 04/28/17 11:39 Glucose (Fingerstick) 134 mg/dL (70-99) 183 mg/dL (70-99) Medications Current Medications Hydromorphone HCl (Dilaudid) 1 mg PRN Q15MIN PRN IV/SQ PAIN GREATER THAN 3/10 Last administered on 04/25/17t 19:31; Start 04/25/17 at 16:30; Stop 04/25/17 at 21:43; Status DC Sodium Chloride 1,000 ml @ 1,000 mls/hr Q1H IV Last administered on 16:49; Start 04/25/17 at 16:29; Stop 04/25/17 at 17:28; Status DC Iohexol (Omnipaque 300 Mg/ml) 75 ml 1X ONCE IV ; Start 04/25/17 at 17:15; Stop 04/25/17 at 17:16; Status DC Info (Do NOT chart on this entry -- for MONITORING) 1 each PRN DAILY PRN MC SEE COMMENTS; Start 04/25/17 at 17:00; Stop 04/27/17 at 16:59; Status DC Ondansetron HCl (Zofran) 4 mg PRN Q8HRS PRN IV NAUSEA/VOMITING Last administered on 04/25/17 21:03; Start 04/25/17 at 18:30; Stop 04/26/17 at 18 :29; Status DC Morphine Sulfate 2 mg PRN Q2HR PRN IV PAIN Last administered on 04/26/17 12: 08; Start 04/25/17 at 18:30; Stop 04/26/17 at 14:12; Status DC Cefepime HCl 1 gm/ Dextrose 50 ml @ 100 mls/hr Q8HRS IV ; Start 04/25/17 at 22 :00; Status UNV Linezolid (Zyvox) 600 mg BID PO Last administered on 04/28/17 09:15; Start 04/25/17 at 22:00 Lactobacillus Rhamnosus (Culturelle) 1 cap BID PO Last administered on 09:16; Start 04/26/17 at 09:00 Potassium Chloride/Sodium Chloride 1,000 ml @ 75 mls/hr [id number] IV Last administered on 04/28/17 11:20; Start 04/25/17 at 21:45 Cefepime HCl (Maxipime) 1 gm Q8HRS IVP Last administered on 04/26/17 06:25; Start 04/25/17 at 22:00; Stop 04/26/17 at 14:20; Status DC Insulin Detemir (Levemir) 30 units QHS SQ Last administered on 04/26/17 22:35 ; Start 04/25/17 at 21:45; Stop 04/27/17 at 11:57; Status DC Insulin Aspart (NovoLOG) 0-9 UNITS TIDWMEALS SQ ; Start 04/26/17 at 08:00 Dextrose (Dextrose 50%-Water Syringe) 12.5 gm PRN Q15MIN PRN IV SEE COMMENTS Last administered on 04/28/17 05:11; Start 04/25/17 at 21:45 Morphine Sulfate 4 mg PRN Q2HR PRN IV PAIN Last administered on 04/27/17 21: 48; Start 04/26/17 at 14:30 Oxycodone/ Acetaminophen (Percocet 7.5/ 325) 1 tab PRN Q4HRS PRN PO PAIN Last administered on 04/28/17 13:38; Start 04/26/17 at 14:15 Ketorolac Tromethamine (Toradol) 15 mg PRN Q6HRS PRN IV PAIN Last administered on 04/28/17 09:17; Start 04/26/17 at 14:30; Stop 05/01/17 at 14:29 Zolpidem Tartrate (Ambien) 5 mg PRN QHS PRN PO INSOMNIA; Start 04/26/17 at 14: 30 Ondansetron HCl (Zofran) 4 mg PRN Q6HRS PRN IV NAUSEA/VOMITING Last administered on 04/26/17 18:36; Start 04/26/17 at 18:30 Acetaminophen/ Hydrocodone Bitart (Lortab 7.5/325) 1 tab Q4HRS PO ; Start 04/27 at 12:30; Stop 04/27/17 at 12:30; Status DC Dicyclomine HCl (Bentyl) 20 mg PRN Q6HRS PRN PO GI SYMPTOMS; Start 04/27/17 at 12:15; Stop 04/27/17 at 13:41; Status DC Hyoscyamine (Anaspaz) 0.125 mg PRN Q6HRS PRN PO STOMACH CRAMPING; Start at 12:15 Ondansetron HCl (Zofran Odt) 4 mg PRN BID PRN PO NAUSEA/VOMITING; Start at 12:15 Promethazine HCl (Phenergan) 25 mg PRN Q6HRS PRN PO NAUSEA/VOMITING; Start at 12:15 Insulin Detemir (Levemir) 15 units QHS SQ Last administered on 04/27/17 21:56 ; Start 04/27/17 at 21:00; Stop 04/28/17 at 13:34; Status DC Acetaminophen/ Hydrocodone Bitart (Lortab 7.5/325) 1 tab PRN Q4HRS PRN PO PAIN Last administered on 04/27/17 23:16; Start 04/27/17 at 12:15 Dicyclomine HCl (Bentyl) 20 mg QID PO Last administered on 04/28/17 09:15; Start 04/27/17 at 14:00 Ibuprofen (Motrin) 600 mg TID PO Last administered on 04/28/17 11:19; Start 04/27/17 at 14:00 Insulin Detemir (Levemir) 10 units QHS SQ ; Start 04/28/17 at 21:00 Active Scripts Active Reported [place] 5-325 Tablet (Acetaminophen/Hydrocodone Bitart) 1 Each Tablet 1 Tab PO PRN Q6HRS PRN Levsin (Hyoscyamine Sulfate) 0.125 Mg Tablet 1 Tab PO PRN Q6HRS Dicyclomine Hcl 20 Mg Tablet 20 Mg PO PRN Q6HRS Promethazine Hcl 25 Mg Tablet 25 Mg PO Q6H PRN Reglan (Metoclopramide Hcl) 10 Mg Tablet 10 Mg PO TID Novolog (Insulin Aspart) 100 Unit/1 Ml Vial 5 Unit SQ TIDBFRMEAL Basaglar Kwikpen U-100 (Insulin Glargine,Hum.rec.anlog) 100 Unit/1 Ml Insuln.pen 40 Unit SQ QHS Hydrocodone-Apap 7.5-325 (Hydrocodone Bit/Acetaminophen) 1 Each Tablet 1 Tab PO Q4HRS Zofran (Ondansetron Hcl) 4 Mg Tablet 4 Mg PO BID PRN Vitals/I & O Vital Sign - Last 24 Hours 04/27/17 04/27/17 04/27/17 04/27/17 14:50 17:07 19:00 20:00 Temp 97.9 98.9 97.9 98.9 Pulse 94 92 Resp 20 18 B/P (MAP) 93/60 (71) 102/68 (79) Pulse Ox 96 94 95 O2 Delivery Room Air Room Air Room Air Room Air 04/27/17 04/27/17 04/27/17 04/27/17 21:48 22:18 23:00 23:16 Temp 98.9 98.9 Pulse 81 Resp 20 20 18 20 B/P (MAP) 109/74 (86) Pulse Ox 95 95 97 95 O2 Delivery Room Air Room Air Room Air Room Air 04/28/17 04/28/17 04/28/17 04/28/17 00:16 03:00 04:57 05:57 Temp 98.7 98.7 Pulse 91 Resp 20 18 20 20 B/P (MAP) 106/72 (83) Pulse Ox 95 95 95 O2 Delivery Room Air Room Air Room Air 04/28/17 04/28/17 04/28/17 04/28/17 07:00 09:16 10:10 11:00 Temp 98.7 98.6 98.7 98.6 Pulse 93 95 Resp 18 18 B/P (MAP) 89/57 (68) 122/80 (94) Pulse Ox 95 95 97 97 O2 Delivery Room Air Room Air Room Air Room Air O2 Flow Rate 2.0 04/28/17 13:38 Pulse Ox 97 O2 Delivery Room Air Intake and Output 04/27/17 04/27/17 04/28/17 15:00 23:00 07:00 Intake Total 180 ml 120 ml Balance 180 ml 120 ml JUSTICE RDZ MD Apr 28, 2017 14:46
[2017-04-28 15:00] VITALS: BP 103/71
--- NOTE | 2017-04-28 15:09 | PDOC ---
GI PROGRESS NOTES Date Date/Time DATE: 04/28/17 TIME: 15:06 Subjective Subjective post op pain- slowly improving and CT and HIDA negative for bile leak or other obvious complication Objective Vitals Vital Signs Date Time Temp Pulse Resp B/P (MAP) Pulse Ox O2 Delivery O2 Flow Rate FiO2 04/28/17 13:38 97 Room Air 04/28/17 11:00 98.6 95 18 122/80 (94) 97 Room Air 98.6 04/28/17 10:10 97 Room Air 2.0 04/28/17 09:16 95 Room Air 04/28/17 07:00 98.7 93 18 89/57 (68) 95 Room Air 98.7 04/28/17 05:57 20 04/28/17 04:57 20 95 Room Air 04/28/17 03:00 98.7 91 18 106/72 (83) 95 Room Air 98.7 04/28/17 00:16 20 95 Room Air 04/27/17 23:16 20 95 Room Air 04/27/17 23:00 98.9 81 18 109/74 (86) 97 Room Air 98.9 04/27/17 22:18 20 95 Room Air 04/27/17 21:48 20 95 Room Air 04/27/17 20:00 Room Air 04/27/17 19:00 98.9 92 18 102/68 (79) 95 Room Air 98.9 04/27/17 17:07 94 Room Air Labs Labs Laboratory Tests Test 04/27/17 16:29 04/27/17 20:42 04/28/17 05:00 04/28/17 05:47 Glucose (Fingerstick) 133 mg/dL (70-99) 152 mg/dL (70-99) 48 mg/dL (70-99) 168 mg/dL (70-99) Test 04/28/17 07:37 04/28/17 11:39 Glucose (Fingerstick) 134 mg/dL (70-99) 183 mg/dL (70-99) Physical Exam Physical Exam VSS chest- clear abd- mildly tender RUQ Assessment Assessment Post op RUQ pain- disproportionate but fortunately CT and HIDA negative- could be diaphragmatic irritation and IBS with increased pain sensitivity Problems: Plan Plan AGree with advance diet as outpt - review prior w/u- r/o IBS, celiac etc for other symptoms- will discuss low fat, FODMAP diet later and consider probiotics, ? bile binders etc later RAPHAEL COBOS MD Apr 28, 2017 15:09
[2017-04-28 19:00] VITALS: BP 113/70
[2017-04-28] MEDS ORDERED: INSULIN DETEMIR 300 UNITS/3 ML INSULN.PEN. SQ SCH (21:00)
[2017-04-28] MEDS ORDERED: NORTRIPTYLINE 10 MG CAPSULE PO SCH (21:00)
[2017-04-28] MEDS ORDERED: INSULIN ASPART 300 UNITS/3 ML INSULN.PEN SQ ONE (22:45)
--- NOTE | 2017-04-28 22:54 | CONS ---
DATE OF CONSULTATION: 04/27/2017 GASTROENTEROLOGY CONSULTATION ADMITTING PHYSICIAN: Dr. Brian Verma. PRIMARY CARE: Eduarda Graham, nurse practitioner. HISTORY OF PRESENT ILLNESS: This is a 26-year-old female who recently underwent an outpatient laparoscopic cholecystectomy for what appears to be acalculous cholecystitis and biliary dyskinesia. She has a long history of multiple GI complaints, including upper abdominal pain and nausea, which were likely related to the acalculous cholecystitis. However, she also has other chronic complaints which are less likely related, including chronic intermittent diarrhea that is unpredictable and seems to resolve on its own, associated with some lower abdominal cramping and what she describes in the past as some left upper quadrant pain. She did have a workup in the past, we do not have those records, including a colonoscopy a year or two ago that was reportedly negative and recently, an upper endoscopy that was reportedly negative. We do not have those records available either. Apparently, those were negative and with the workup suggesting biliary disease as a potential source for many of her complaints, she underwent this elective cholecystectomy earlier this week. However, in the postoperative period, although she felt well and was discharged, she came back with fairly significant right upper quadrant pain in the postoperative period and concern was whether or not she might have complication. This pain is sharp, under her ribs, severe and worse with breathing. It was different than the pain she had in the past. She underwent an urgent CT in the Emergency Room, which was negative and yesterday, had a HIDA scan to rule out biloma or bile leak and it was in fact negative. There was a small amount of free air under the diaphragm, which is not inconsistent with her recent surgery. She denies hematemesis or melena. She does have the chronic complaints as mentioned above. PAST MEDICAL HISTORY: 1. Diabetes. 2. Chronic abdominal pain with intermittent diarrhea. 3. Biliary dyskinesia. PAST SURGICAL HISTORY: Cholecystectomy. FAMILY HISTORY: Positive for gallbladder disease. SOCIAL HISTORY: Does not smoke or drink, does not use illicit drugs. ALLERGIES: LATEX, otherwise none. MEDICATIONS: See the chart. REVIEW OF SYSTEMS: Right upper quadrant pain and shortness of breath, as mentioned above. GENERAL: No fever or chills. HEENT: No headache or blurred vision. PULMONARY: No shortness of breath or productive cough. CARDIOVASCULAR: No chest pain or pedal edema. GENITOURINARY: No change in urinary pattern. NEUROLOGIC: Denies seizures or paralysis. MUSCULOSKELETAL: Denies acute arthritis or arthralgias. SKIN: Denies pruritus, jaundice or itching. HEMATOLOGIC: Denies easy bruisability or bleeding. PHYSICAL EXAMINATION: VITAL SIGNS: Blood pressure is 89/57, pulse is 90 and respirations 18. She is afebrile. GENERAL: She is awake and alert, in some mild distress from her right upper quadrant pain. She is anicteric. CHEST: Clear. HEART: Regular rate and rhythm. ABDOMEN: Mildly tender in the right upper quadrant. No point tenderness. No rebound. RECTAL: Deferred. EXTREMITIES: No cyanosis, clubbing or edema. NEUROLOGICAL EXAMINATION: Alert and oriented. No gross deficits. LABORATORY DATA: Hemoglobin 11.4, white blood cell count 4800. CT scan of the abdomen and pelvis revealed, as mentioned above, a small amount of free air under the right hemidiaphragm, very little free fluid noted in that region consistent with her recent cholecystectomy. There is a large follicle on the left ovary. Otherwise, the exam is negative. HIDA scan done yesterday negative for bile leak. ASSESSMENT: Postoperative pain. No obvious complications from the surgery are noted at this time. The possibility of just irritation under the diaphragm in a patient who probably has chronic irritable bowel syndrome is most likely. Some of her prior symptoms such as a left upper quadrant pain and diarrhea are certainly not going to be related to the acalculous cholecystitis or biliary dyskinesia, but many patients will have more than one problem and this seems to be the case here. She has tried hyoscyamine and dicyclomine in the past, which have provided some minimal improvement and has not been taking any antidiarrheal medications. It does not appear she has been specifically treated for probable irritable bowel syndrome. Also, I am not aware of whether or not she has had biopsies of the small bowel to rule out celiac disease, although it seems likely since she had a recent endoscopy, but this needs to be reevaluated and those records could be reviewed in the outpatient setting. PLAN: 1. Symptomatic treatment for her pain, which should improve. 2. Restart dicyclomine or Levsin. 3. Would discuss with her in the outpatient setting a low-fat diet, possibly a FODMAP diet and potentially the use of probiotic therapy for her diarrhea. P.r.n. use of a bile binder or Carafate may be of some benefit now due to her recent cholecystectomy, but other treatments for possible irritable bowel including nighttime low-dose tricyclic medications or other potential treatments may be of some consideration. We appreciate the opportunity. RAPHAEL COBOS MD DR: GRETCHEN/[place] JOB#: [id number] / [id number] EDUARDA Hernández NP, THOMAS MD
[2017-04-28 23:00] VITALS: BP 111/67
[2017-04-28] MEDS: HYDROcodone/APAP 7.5/325MG 1 TAB TABLET PO PRN (23:28)
[2017-04-29 03:00] VITALS: BP 97/67
[2017-04-29] MEDS: HYDROcodone/APAP 7.5/325MG 1 TAB TABLET PO PRN (06:21)
[2017-04-29 07:00] VITALS: BP 109/71
[2017-04-29] MEDS: INSULIN ASPART 300 UNITS/3 ML INSULN.PEN SQ SCH ×2 (08:00→12:00)
--- NOTE | 2017-04-29 08:56 | PDOC ---
SURGICAL PROGRESS NOTE Subjective eating small amounts pain is slowly improving Vital Signs Vital Signs Date Time Temp Pulse Resp B/P (MAP) Pulse Ox O2 Delivery O2 Flow Rate FiO2 04/29/17 07:30 Room Air 04/29/17 03:00 97.5 90 16 97/67 (77) 94 97.5 04/28/17 10:10 2.0 General: Alert, Oriented X3, Cooperative, No acute distress Abdomen: Soft, Other (upper abdominal TTP) Labs Laboratory Tests Test 04/27/17 09:16 04/27/17 11:11 04/27/17 16:29 04/27/17 20:42 Glucose (Fingerstick) 123 mg/dL (70-99) 176 mg/dL (70-99) 133 mg/dL (70-99) 152 mg/dL (70-99) Test 04/28/17 05:00 04/28/17 05:47 04/28/17 07:37 04/28/17 11:39 Glucose (Fingerstick) 48 mg/dL (70-99) 168 mg/dL (70-99) 134 mg/dL (70-99) 183 mg/dL (70-99) Test 04/28/17 16:38 04/28/17 22:09 04/29/17 07:16 Glucose (Fingerstick) 161 mg/dL (70-99) 279 mg/dL (70-99) 138 mg/dL (70-99) Laboratory Tests Test 04/28/17 11:39 04/28/17 16:38 04/28/17 22:09 04/29/17 07:16 Glucose (Fingerstick) 183 mg/dL (70-99) 161 mg/dL (70-99) 279 mg/dL (70-99) 138 mg/dL (70-99) Problem List Problems Medical Problems: (1) Post-op pain Status: Acute Assessment/Plan s/p melvin abd pain no surgical findings, GI following ok to dc when medically ready 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
[2017-04-29] MEDS: IBUPROFEN 600 MG TABLET. PO SCH ×2 (09:00→14:00)
[2017-04-29] MEDS: DICYCLOMINE HCL 10 MG CAPSULE PO SCH ×2 (09:44→12:43)
[2017-04-29] MEDS: KETOROLAC 15 MG/ML VIAL. IV PRN (09:45)
[2017-04-29] MEDS: LACTOBACILLUS RHAMNOSUS GG 1 CAPSULE. PO SCH (09:45)
[2017-04-29] MEDS: LINEZOLID 600 MG TABLET PO SCH (09:45)
--- NOTE | 2017-04-29 09:45 | PDOC ---
Subjective: Subjective: Tolerated dinner and breakfast. Pain improved - worse w/ movement. No BM but hasn't eaten much since surgery. Didn't want nortriptyline because knows it's an anti-depressant. Wants a note when she leaves because doesn't feel strong enough to work 12 hours shifts. Objective: Objective: Breakfast plate empty. Vital Signs: Vital Signs Date Time Temp Pulse Resp B/P (MAP) Pulse Ox O2 Delivery O2 Flow Rate FiO2 04/29/17 07:30 Room Air 04/29/17 07:00 98.5 86 16 109/71 (84) 95 98.5 04/28/17 10:10 2.0 Labs: Laboratory Tests Test 04/28/17 11:39 04/28/17 16:38 04/28/17 22:09 04/29/17 07:16 Glucose (Fingerstick) 183 mg/dL (70-99) 161 mg/dL (70-99) 279 mg/dL (70-99) 138 mg/dL (70-99) PE: GEN: NAD LUNGS: CTAB HEART: RRR ABD: BS+, incisional tenderness RUQ NEURO/PSYCH: A & O 3 A/P: RUQ pain - improved Probable IBS S/p cholecystectomy -- Discussed w/ her the use of low-dose tricyclics for GI purposes, she will consider. Will attempt to review previous 'scopes, can also follow-up re: this as outpt. DC per primary, defer work note to primary. ERROL ZIEGLER Apr 29, 2017 09:45
[2017-04-29 11:00] VITALS: BP 112/74
--- NOTE | 2017-04-29 12:04 | PDOC ---
PROGRESS NOTES Chief Complaint Chief Complaint Dm1 post lap melvin pain, normal CT, normal HIDA scan Obesity Elevated LFts History of Present Illness History of Present Illness Patient alert and oriented requesting discharge. She also requests to speak with dietary for education on which foods to avoid post-cholecystectomy. Vitals Vitals Vital Signs Date Time Temp Pulse Resp B/P (MAP) Pulse Ox O2 Delivery O2 Flow Rate FiO2 04/29/17 11:00 98.8 87 16 112/74 (87) 94 Room Air 98.8 04/28/17 10:10 2.0 Physical Exam General: Alert, Oriented X3, Cooperative, No acute distress Heart: Regular rate, No murmurs Abdomen: Normal bowel sounds, Soft, No tenderness, Other (upper abdominal TTP) Extremities: No clubbing, No edema Skin: No rashes, No significant lesion Labs LABS Laboratory Tests Test 04/28/17 16:38 04/28/17 22:09 04/29/17 07:16 Glucose (Fingerstick) 161 mg/dL (70-99) 279 mg/dL (70-99) 138 mg/dL (70-99) Review of Systems Review of Systems Complains of mild abdominal pain, reports diarrhea with certain foods Assessment and Plan Assessmemt and Plan Problems Medical Problems: (1) Post-op pain Status: Acute Assessment: DM1 post-op lap cholecystectomy chronic abdominal pain Plan: Consult dietary for patient post-op education Probable d/c later today Problems: Comment Review of Relevant I have reviewed the following items julieta (where applicable) has been applied. Labs Laboratory Tests Test 04/27/17 16:29 04/27/17 20:42 04/28/17 05:00 04/28/17 05:47 Glucose (Fingerstick) 133 mg/dL (70-99) 152 mg/dL (70-99) 48 mg/dL (70-99) 168 mg/dL (70-99) Test 04/28/17 07:37 04/28/17 11:39 04/28/17 16:38 04/28/17 22:09 Glucose (Fingerstick) 134 mg/dL (70-99) 183 mg/dL (70-99) 161 mg/dL (70-99) 279 mg/dL (70-99) Test 04/29/17 07:16 Glucose (Fingerstick) 138 mg/dL (70-99) Laboratory Tests Test 04/28/17 16:38 04/28/17 22:09 04/29/17 07:16 Glucose (Fingerstick) 161 mg/dL (70-99) 279 mg/dL (70-99) 138 mg/dL (70-99) Medications Current Medications Hydromorphone HCl (Dilaudid) 1 mg PRN Q15MIN PRN IV/SQ PAIN GREATER THAN 3/10 Last administered on 04/25/17 19:31; Start 04/25/17 at 16:30; Stop 04/25/17 at 21:43; Status DC Sodium Chloride 1,000 ml @ 1,000 mls/hr Q1H IV Last administered on 16:49; Start 04/25/17 at 16:29; Stop 04/25/17 at 17:28; Status DC Iohexol (Omnipaque 300 Mg/ml) 75 ml 1X ONCE IV ; Start 04/25/17 at 17:15; Stop 04/25/17 at 17:16; Status DC Info (Do NOT chart on this entry -- for MONITORING) 1 each PRN DAILY PRN MC SEE COMMENTS; Start 04/25/17 at 17:00; Stop 04/27/17 at 16:59; Status DC Ondansetron HCl (Zofran) 4 mg PRN Q8HRS PRN IV NAUSEA/VOMITING Last administered on 04/25/17 21:03; Start 04/25/17 at 18:30; Stop 04/26/17 at 18 :29; Status DC Morphine Sulfate 2 mg PRN Q2HR PRN IV PAIN Last administered on 04/26/17 12: 08; Start 04/25/17 at 18:30; Stop 04/26/17 at 14:12; Status DC Cefepime HCl 1 gm/ Dextrose 50 ml @ 100 mls/hr Q8HRS IV ; Start 04/25/17 at 22 :00; Status UNV Linezolid (Zyvox) 600 mg BID PO Last administered on 04/29/17 09:45; Start 04/25/17 at 22:00 Lactobacillus Rhamnosus (Culturelle) 1 cap BID PO Last administered on 09:45; Start 04/26/17 at 09:00 Potassium Chloride/Sodium Chloride 1,000 ml @ 75 mls/hr [id number] IV Last administered on 04/28/17 18:43; Start 04/25/17 at 21:45 Cefepime HCl (Maxipime) 1 gm Q8HRS IVP Last administered on 04/26/17 06:25; Start 04/25/17 at 22:00; Stop 04/26/17 at 14:20; Status DC Insulin Detemir (Levemir) 30 units QHS SQ Last administered on 04/26/17 22:35 ; Start 04/25/17 at 21:45; Stop 04/27/17 at 11:57; Status DC Insulin Aspart (NovoLOG) 0-9 UNITS TIDWMEALS SQ ; Start 04/26/17 at 08:00 Dextrose (Dextrose 50%-Water Syringe) 12.5 gm PRN Q15MIN PRN IV SEE COMMENTS Last administered on 04/28/17 05:11; Start 04/25/17 at 21:45 Morphine Sulfate 4 mg PRN Q2HR PRN IV PAIN Last administered on 04/27/17 21: 48; Start 04/26/17 at 14:30 Oxycodone/ Acetaminophen (Percocet 7.5/ 325) 1 tab PRN Q4HRS PRN PO PAIN Last administered on 04/28/17 18:39; Start 04/26/17 at 14:15 Ketorolac Tromethamine (Toradol) 15 mg PRN Q6HRS PRN IV PAIN Last administered on 04/29/17 09:45; Start 04/26/17 at 14:30; Stop 05/01/17 at 14:29 Zolpidem Tartrate (Ambien) 5 mg PRN QHS PRN PO INSOMNIA; Start 04/26/17 at 14: 30 Ondansetron HCl (Zofran) 4 mg PRN Q6HRS PRN IV NAUSEA/VOMITING Last administered on 04/26/17 18:36; Start 04/26/17 at 18:30 Acetaminophen/ Hydrocodone Bitart (Lortab 7.5/325) 1 tab Q4HRS PO ; Start 04/27 at 12:30; Stop 04/27/17 at 12:30; Status DC Dicyclomine HCl (Bentyl) 20 mg PRN Q6HRS PRN PO GI SYMPTOMS; Start 04/27/17 at 12:15; Stop 04/27/17 at 13:41; Status DC Hyoscyamine (Anaspaz) 0.125 mg PRN Q6HRS PRN PO STOMACH CRAMPING; Start at 12:15 Ondansetron HCl (Zofran Odt) 4 mg PRN BID PRN PO NAUSEA/VOMITING; Start at 12:15 Promethazine HCl (Phenergan) 25 mg PRN Q6HRS PRN PO NAUSEA/VOMITING; Start at 12:15 Insulin Detemir (Levemir) 15 units QHS SQ Last administered on 04/27/17 21:56 ; Start 04/27/17 at 21:00; Stop 04/28/17 at 13:34; Status DC Acetaminophen/ Hydrocodone Bitart (Lortab 7.5/325) 1 tab PRN Q4HRS PRN PO PAIN Last administered on 04/29/17 06:21; Start 04/27/17 at 12:15 Dicyclomine HCl (Bentyl) 20 mg QID PO Last administered on 04/29/17 09:44; Start 04/27/17 at 14:00 Ibuprofen (Motrin) 600 mg TID PO Last administered on 04/28/17 21:12; Start 04/27/17 at 14:00 Insulin Detemir (Levemir) 10 units QHS SQ Last administered on 04/28/17 23:16 ; Start 04/28/17 at 21:00 Nortriptyline HCl (Pamelor) 10 mg QHS PO ; Start 04/28/17 at 21:00 Insulin Aspart (NovoLOG) 4 units 1X ONCE SQ Last administered on 04/28/17 23 :17; Start 04/28/17 at 22:45; Stop 04/28/17 at 22:46; Status DC Active Scripts Active Reported [place] 5-325 Tablet (Acetaminophen/Hydrocodone Bitart) 1 Each Tablet 1 Tab PO PRN Q6HRS PRN Levsin (Hyoscyamine Sulfate) 0.125 Mg Tablet 1 Tab PO PRN Q6HRS Dicyclomine Hcl 20 Mg Tablet 20 Mg PO PRN Q6HRS Promethazine Hcl 25 Mg Tablet 25 Mg PO Q6H PRN Reglan (Metoclopramide Hcl) 10 Mg Tablet 10 Mg PO TID Novolog (Insulin Aspart) 100 Unit/1 Ml Vial 5 Unit SQ TIDBFRMEAL [place] U-100 (Insulin Glargine,Hum.rec.anlog) 100 Unit/1 Ml Insuln.pen 40 Unit SQ QHS Hydrocodone-Apap 7.5-325 (Hydrocodone Bit/Acetaminophen) 1 Each Tablet 1 Tab PO Q4HRS Zofran (Ondansetron Hcl) 4 Mg Tablet 4 Mg PO BID PRN Vitals/I & O Vital Sign - Last 24 Hours 04/28/17 04/28/17 04/28/17 04/28/17 13:38 15:00 18:39 19:00 Temp 98.7 99.0 98.7 99.0 Pulse 89 91 Resp 18 16 B/P (MAP) 103/71 (82) 113/70 (84) Pulse Ox 97 97 97 94 O2 Delivery Room Air Room Air Room Air Room Air 04/28/17 04/28/17 04/28/17 04/28/17 19:30 20:00 23:00 23:28 Temp 98.1 98.1 Pulse 93 Resp 16 B/P (MAP) 111/67 (82) Pulse Ox 97 94 O2 Delivery Room Air Room Air Room Air Room Air 04/29/17 04/29/17 04/29/17 04/29/17 03:00 06:21 07:00 07:30 Temp 97.5 98.5 97.5 98.5 Pulse 90 86 Resp 16 16 B/P (MAP) 97/67 (77) 109/71 (84) Pulse Ox 94 95 O2 Delivery Room Air Room Air Room Air Room Air 04/29/17 11:00 Temp 98.8 98.8 Pulse 87 Resp 16 B/P (MAP) 112/74 (87) Pulse Ox 94 O2 Delivery Room Air SILVA HUSAIN III DO Apr 29, 2017 12:04
[2017-04-29] MEDS: oxyCODONE/APAP 7.5/325 1 TAB TABLET PO PRN (12:43)
[2017-04-29 15:00] VITALS: BP_SYST 126
== END 2017-04-29 17:43 | disposition home or self-care (01) ==
LOC: ER 15:58 → 4 NORTH 18:22
PROVIDERS: ADMIT Internal Medicine Hematology & Oncology; ATTEND Internal Medicine Hematology & Oncology
DX: G89.18 Other acute postprocedural pain (principal); G89.29 Other chronic pain; E10.649 Type 1 diabetes mellitus with hypoglycemia without coma; E66.9 Obesity, unspecified; K82.8 Other specified diseases of gallbladder; Z90.49 Acquired absence of other specified parts of digestive tract
CPT/HCPCS: 36415; 74177; 78226; 80048; 80053; 82962; 83690; 85025; 96361; 96372; 96374; 96375; 96376; A9537; G0378; G0379; J0692; J1170; J1815; J1885; J2270; J2405; J7030; J7042